=== PATIENT | male | born 1935 | race Caucasian/White ===

== ENCOUNTER 2020-11-13 20:02 | Inpatient (IN) ==
[2020-11-13] MEDS ORDERED: 0.9 % SODIUM CHLORIDE 500 ML IV ONE (20:29)
[2020-11-13] MEDS ORDERED: cefTRIAXone 1 GM VIAL IV ONE (20:29)
[2020-11-13 22:07] LABS: Appearance,Urine HAZY (Clear); Bilirubin,Urine Negative (Negative); Color,Urine YELLOW; Culture Indicated,Urine yes; Glucose,Urine (UA) Negative (Negative); Ketones,Urine Negative (Negative); Leukocyte Esterase,Urine 25 /ug (Negative); Nitrate,Urine POS (Negative); Protein,Urine Negative (Negative); Specific Gravity,Urine 1.012 (1.000-1.035); Urine Blood >=1.0 mg/dL (Negative); Urine RBC > 182 /hpf (0-1); Urine Squamous Epithelial Cell 0 /hpf (0-4); Urine WBC 15 /hpf (0-4); Urobilinogen,Urine Negative
[2020-11-13] MEDS ORDERED: ACETAMINOPHEN 325 MG TABLET PO ONE (22:10)
[2020-11-13 22:24] LABS: ALT/SGPT 13 U/L (<40); AST/SGOT 19 U/L (<40); Albumin 3.5 gm/dL (3.2-5.2); Albumin/Globulin Ratio 1.3 (1.0-2.3); Alkaline Phosphatase 61 U/L (39-117); Bilirubin,Total 0.6 mg/dL (0.1-1.0); Blood Urea Nitrogen 14 mg/dL (8-23); Calcium 8.7 mg/dL (8.6-10.4); Carbon Dioxide 25 mmol/L (22-30); Chloride 103 mmol/L (96-108); Globulin 2.8 gm/dL (2.2-3.7); Glomerular Filtration Rate 61; Glucose 91 mg/dL (70-105)
[2020-11-13 23:52] LABS: Basophils # (Auto) 0.03 K/mcL (0.00-0.30); Basophils % (Auto) 0.2 % (0.0-2.0); Eosinophils # (Auto) 0.02 K/mcL (0.00-0.70); Eosinophils % (Auto) 0.2 % (0.0-7.0); Hematocrit 39.3 % (40.1-51.0); Hemoglobin 12.5 g/dL (13.7-17.5); Lymphocytes # (Auto) 0.41 K/mcL (1.50-4.80); Lymphocytes % (Auto) 3.1 % (15.5-49.0); Mean Cell Volume 90.8 fL (80.0-100.0); Mean Corpuscular HGB Conc 31.8 g/dL (31.0-36.0); Monocytes # (Auto) 0.28 K/mcL (0.10-0.90); Monocytes % (Auto) 2.1 % (1.0-12.0); Neutrophils % (Auto) 94.4 % (38.0-78.0); Platelet Count 168 K/mcL (140-440); RBC 4.33 M/mcL (4.63-6.08); Red Cell Distribution Width 12.8 % (11.5-14.5); WBC 13.3 K/mcL (4.5-11.0)
[2020-11-14] MEDS ORDERED: SODIUM CHLORIDE IV SCH (00:15)
[2020-11-14] MEDS ORDERED: COLD IV SCH (00:15)
--- NOTE | 2020-11-14 01:37 | Emergency Department Note ---
HPI General Chief complaint: Urogenital-Male Stated complaint: urogential Time Seen by Provider: 11/13/20 21:53 Source: patient and EMS Mode of arrival: ambulatory Limitations: no limitations History of Present Illness HPI Narrative: 85-year-old male presents to the emergency department because of dizziness and shaking. [place] a sudden onset of dizziness and shaking. He had no diaphoresis with it but he felt warm. EMS may have been notified but the patient elected to drive himself to our hospital. 3 days prior to this the patient states he developed urinary tract infection symptoms. This morning he was seen at an urgent care center where he was diagnosed with having a urinary tract infection and was given Macrobid. Patient rates his discomfort as a 5 on a 0-to-10 scale. States it is constant. Although it does wax and wane. Nothing makes it better. Associated with the urinary tract infection. Dull discomfort Patient states he has had occasional urinary tract infections before. States he has known coronary artery disease and had an OR followed by placement of a stent. States he has had problems with dizziness in the past. Related Data Home Medications Medication Instructions Recorded Confirmed Glucosamine 1,000 mg PO BID 04/20/16 11/11/20 Vitamin B-12 1 tab PO DAILY 04/20/16 11/11/20 aspirin [Keyona Chewable Aspirin] 81 mg PO DAILY 04/20/16 11/11/20 finasteride 5 mg PO DAILY 04/20/16 11/11/20 omeprazole 20 mg PO DAILY 04/20/16 11/11/20 rosuvastatin 10 mg PO DAILY 04/20/16 11/11/20 nitroglycerin 0.4 mg SL Q5M PRN 12/30/18 11/11/20 Previous Rx's Medication Instructions Recorded meclizine 12.5 mg PO BIDP PRN #5 tab 12/30/18 tamsulosin 0.4 mg capsule 0.4 mg PO QHS #30 cap 10/28/20 nitrofurantoin 100 mg PO BID 7 Days #14 cap 11/13/20 monohydrate/macrocrystals 100 mg capsule Allergies Allergy/AdvReac Type Severity Reaction Status Date / Time No Known Drug Allergies Allergy Verified 11/11/20 13:39 Review of Systems ROS ROS Narrative: Narrative: Constitutional: Reports other (Did feel warm but did take temperature.); Denies fever and sweats Eyes: Denies eye pain ENT ED: Denies ear pain and rhinorrhea Cardiovascular: Denies chest pain Respiratory: Denies shortness of breath Gastrointestinal: Denies abdominal pain Genitourinary: Reports dysuria Integumentary: Denies rash Neurological: Reports dizziness; Denies headache Psychiatric: Denies anxiety Hematological/Lymphatic: Denies easy bleeding PFSH Narrative Patient History Narrative: Narrative: Medical/Surgical/Family History All Active Problems (Updated 11/14/20 @ 07:23 by Triston Franks MD) Benign paroxysmal positional vertigo (Chronic) Dizziness (Chronic) Bradycardia, sinus (Chronic) History of coronary artery stent placement (Acute ~2016) Status post myocardial infarction (Chronic ~2016) Acute UTI (Acute) Gross hematuria (Acute) History of smoking (Acute) BPH loc w urin obs/LUTS (Acute) Incomplete bladder emptying (Acute) Nocturia (Acute) Septic shock due to urinary tract infection (Acute) Medical History Acute bacterial tonsillitis Benign paroxysmal positional vertigo Bradycardia, sinus Dizziness ST elevation myocardial infarction (STEMI) Status post myocardial infarction (~2016) Urinary tract infection in male Surgical History History of coronary artery stent placement (~2015) 1, LMA or LAD ("widowmaker") Family History Other No pertinent family history Social History Smoking Status: Current every day smoker Exam Narrative Narrative: Narrative: General is a well-developed well-nourished elderly male who appears approximately 20 years less than his stated age. General Limitations: no limitations General appearance: Present alert and in distress; Absent anxious, appears intoxicated and in no apparent distress Head Head: Present atraumatic and normocephalic Eye Eye: Present EOMI ENT ENT: Present normal oropharynx and TM's normal bilaterally Neck Neck: Present full ROM Chest Chest: Present normal inspection and symmetric chest wall rise Respiratory Respiratory: Present normal lung sounds bilaterally; Absent respiratory distress Cardiovascular Cardiovascular: Present normal rhythm and tachycardia Adbominal Abdominal: Present soft; Absent tenderness Extremities Extremities: Present normal inspection and full ROM Back Back: Present normal inspection Neurological Neurological: Present alert and oriented X3 Psychiatric Psychiatric: Present normal affect and normal mood Skin Skin: Present warm (WNL) Course Reevaluation(s) Reevaluation #1: There were no beds available for admission here at the hospital though I expect patient beds to be available in the morning. For this reason I have elected to keep the patient in the emerge department tonight on observation for anticipated admission tomorrow unless his condition dramatically improves. Patient is placed on observation here in the emergency department at 2330. Time: 23:30 Reevaluation #2: Systolic blood pressure has been 100 and more since 0246. That is with Levophed. Discussed with hospitalist. He accepts the patient for admission. Time: 04:30 Reevaluation #3: Patient has maintain a systolic blood pressure 100 or greater for the past 4 hours. I will begin weaning off the Levophed to see if the patient can maintain blood pressure without it. Time: 06:40 Vital Signs Vital signs: Vital Signs Temperature 103.1 F H 11/13/20 20:03 Pulse Rate 104 H 11/13/20 20:03 Respiratory Rate 16 11/13/20 20:03 Blood Pressure 104/71 11/13/20 20:03 Pulse Oximetry (%) 98 11/13/20 20:03 Temperature 99.3 F H 11/14/20 02:30 Pulse Rate 56 L 11/14/20 07:01 Respiratory Rate 20 11/14/20 07:01 Blood Pressure 100/68 11/14/20 07:01 Pulse Oximetry (%) 97 11/14/20 07:01 [facility] Narrative Medical decision making narrative: Narrative: Elderly male presents to the emergency department because of shaking episode and dizziness earlier in the day being diagnosed with a urinary tract infection. Differential diagnosis included acute sepsis, urinary tract infection, stroke, seizure. Early upon arrival to the patient we initiated the sepsis protocol. Patient had blood work drawn urine was sent for testing and patient received IV fluids. After the blood cultures ceftriaxone 1 g was administered IV. Earlier in the stay the patient's blood pressure was in a normal range but he was tachycardic. As time went along his heart rate slowed but his blood pressure dropped below 90 systolic. White count came back elevated at 13.3. Patient did not develop a fever here in the emergency department Reviewing the CMT for sepsis patient has an actual urinary tract infection is criteria #1 has at least 2 SIRS criteria (heart rate greater than 90, respiratory rate greater than 20, white count greater than 12,000) and 1 new organ dysfunction from criteria 3 which was systolic blood pressure less than 90. Patient's lactate was normal as were the rest of criteria #3 based on her having these criteria the patient met severe sepsis blood cultures were obtained and antibiotics were administered subsequently using ceftriaxone 1 g IV. Initial order was for sepsis fluids. Patient received 1 L of normal saline followed by 2800 mL of normal saline. Patient's blood pressure was initially greater than 90 for the first few hours of her stay in the emergency department.. The original lactate was less than 2, so a repeat lactate was not ordered. Hours later I performed a review of the patient's perfusion and the patient had good perfusion at the nailbeds and in the face. I discussed with the patient his sepsis and advised him to remain here in the hospital with IV antibiotics and further monitoring until his condition improved. Patient was agreeable. With patient's blood pressure below 90 systolic I implemented Levophed. This brought the patient's blood pressure up greater than 100 systolic. I consulted with the hospitalist who accepted the patient for admission. Patient was kept on Levophed for 4 hours and blood pressure remained above 100. I am beginning the weaning off of Levophed at this time. Patient remains in the department pending the bed in the ICU or elsewhere in the hospital. Lab Data Result diagrams: 11/13/20 22:54 11/13/20 20:51 Labs: Lab Results 11/13/20 11/13/20 11/13/20 Range/Units 20:51 20:51 20:51 WBC TNP RBC TNP Hgb TNP Hct TNP MCV TNP MCH TNP MCHC TNP RDW TNP Plt Count TNP MPV TNP Neut % (Auto) (38.0-78.0) % Lymph % (Auto) (15.5-49.0) % Lyon % (Auto) (1.0-12.0) % Eos % (Auto) (0.0-7.0) % Baso % (Auto) (0.0-2.0) % Lymph # (Auto) (1.50-4.80) K/mcL Lyon # (Auto) (0.10-0.90) K/mcL Eos # (Auto) (0.00-0.70) K/mcL Baso # (Auto) (0.00-0.30) K/mcL Seg Neutrophils % TNP Band Neutrophils % TNP Lymphocytes % TNP Monocytes % (Manual) TNP Eosinophils % (Manual) TNP Basophils % (Manual) TNP Metamyelocytes % TNP Myelocytes % TNP Promyelocytes % TNP Absolute Neutrophils (1.80-8.00) K/mcL Nucleated RBCs TNP WBC Morphology TNP Vacuolated Neuts TNP Plasmacytoid Lymphs TNP Reactive Lymphocytes TNP Blast Cells TNP Plasma Cells TNP Other Cell Type TNP Toxic Granulation TNP Dohle Bodies TNP Platelet Estimate TNP RBC Morphology TNP Polychromasia TNP Hypochromasia TNP Poikilocytosis TNP Basophilic Stippling TNP Anisocytosis TNP Microcytosis TNP Macrocytosis TNP Spherocytes TNP Pappenheimer Bodies TNP Target Cells TNP Tear Drop Cells TNP Ovalocytes TNP Stomatocytes TNP Helmet Cells TNP [place] Level Bodies TNP Janeth Cells TNP Acanthocytes (Spur) TNP RBC Fragments TNP VBG Lactic Acid 1.8 (0.5-2.0) mmol/L Sodium 136 (133-145) mmol/L Potassium 3.8 (3.3-5.1) mmol/L Chloride 103 (96-108) mmol/L Carbon Dioxide 25 (22-30) mmol/L Anion Gap 8.0 (8.0-16.0) BUN 14 (8-23) mg/dL Creatinine 1.1 (0.7-1.2) mg/dL GFR Calculation 61 Glucose 91 (70-105) mg/dL Calcium 8.7 (8.6-10.4) mg/dL Total Bilirubin 0.6 (0.1-1.0) mg/dL AST 19 (<40) U/L ALT 13 (<40) U/L Alkaline Phosphatase 61 (39-117) U/L Total Protein 6.3 (5.9-8.4) gm/dL Albumin 3.5 (3.2-5.2) gm/dL Globulin 2.8 (2.2-3.7) gm/dL Albumin/Globulin Ratio 1.3 (1.0-2.3) Urine Color Urine Appearance (Clear) Urine pH (5.0-9.0) Ur Specific [place] (1.000-1.035) Urine Protein (Negative) mg/dL Urine Glucose (UA) (Negative) mg/dL Urine Ketones (Negative) mg/dL Urine Occult Blood (Negative) mg/dL Urine Nitrate (Negative) Urine Bilirubin (Negative) mg/dL Urine Urobilinogen mg/dL Ur Leukocyte Esterase (Negative) /ug Urine RBC (0-1) /hpf Urine WBC (0-4) /hpf Ur Squamous Epith Cells (0-4) /hpf Urine Bacteria (0) /hpf Ur Culture Indicated? 11/13/20 11/13/20 Range/Units 20:59 22:54 WBC 13.3 H RBC 4.33 L Hgb 12.5 L Hct 39.3 L MCV 90.8 MCH 28.9 MCHC 31.8 RDW 12.8 Plt Count 168 MPV 9.0 Neut % (Auto) 94.4 H (38.0-78.0) % Lymph % (Auto) 3.1 L (15.5-49.0) % Lyon % (Auto) 2.1 (1.0-12.0) % Eos % (Auto) 0.2 (0.0-7.0) % Baso % (Auto) 0.2 (0.0-2.0) % Lymph # (Auto) 0.41 L (1.50-4.80) K/mcL Lyon # (Auto) 0.28 (0.10-0.90) K/mcL Eos # (Auto) 0.02 (0.00-0.70) K/mcL Baso # (Auto) 0.03 (0.00-0.30) K/mcL Seg Neutrophils % Band Neutrophils % Lymphocytes % Monocytes % (Manual) Eosinophils % (Manual) Basophils % (Manual) Metamyelocytes % Myelocytes % Promyelocytes % Absolute Neutrophils 12.58 H (1.80-8.00) K/mcL Nucleated RBCs WBC Morphology Vacuolated Neuts Plasmacytoid Lymphs Reactive Lymphocytes Blast Cells Plasma Cells Other Cell Type Toxic Granulation Dohle Bodies Platelet Estimate RBC Morphology Polychromasia Hypochromasia Poikilocytosis Basophilic Stippling Anisocytosis Microcytosis Macrocytosis Spherocytes Pappenheimer Bodies Target Cells Tear Drop Cells Ovalocytes Stomatocytes Helmet Cells [place] Level Bodies [place] Cells Acanthocytes (Spur) RBC Fragments VBG Lactic Acid (0.5-2.0) mmol/L Sodium (133-145) mmol/L Potassium (3.3-5.1) mmol/L Chloride (96-108) mmol/L Carbon Dioxide (22-30) mmol/L Anion Gap (8.0-16.0) BUN (8-23) mg/dL Creatinine (0.7-1.2) mg/dL GFR Calculation Glucose (70-105) mg/dL Calcium (8.6-10.4) mg/dL Total Bilirubin (0.1-1.0) mg/dL AST (<40) U/L ALT (<40) U/L Alkaline Phosphatase (39-117) U/L Total Protein (5.9-8.4) gm/dL Albumin (3.2-5.2) gm/dL Globulin (2.2-3.7) gm/dL Albumin/Globulin Ratio (1.0-2.3) Urine Color Yellow Urine Appearance Hazy A (Clear) Urine pH 6.0 (5.0-9.0) Ur Specific [place] 1.012 (1.000-1.035) Urine Protein Negative (Negative) mg/dL Urine Glucose (UA) Negative (Negative) mg/dL Urine Ketones Negative (Negative) mg/dL Urine Occult Blood >=1.0 A (Negative) mg/dL Urine Nitrate Pos A (Negative) Urine Bilirubin Negative (Negative) mg/dL Urine Urobilinogen Negative mg/dL Ur Leukocyte Esterase 25 A (Negative) /ug Urine RBC > 182 H (0-1) /hpf Urine WBC 15 H (0-4) /hpf Ur Squamous Epith Cells 0 (0-4) /hpf Urine Bacteria None (0) /hpf Ur Culture Indicated? yes ED POC Tests ED POC Tests: RAFIA - SARS Antigen Negative CC TIME Critical Care Time Critical Care Time: Yes Total Critical Care Time: 35 Attestation: The patient's septic shock condition with a low blood pressure known infection in 3 of the criteria 2 (tachycardia tachypnea leukocytosis) necessitated my high level of attention. I spent greater than 35 minutes caring for the patient exclusive of all procedures. Discharge Plan Patient/Caregiver Discharge Instructions Pt seen by CATERING ADMINISTRATIVE ASSISTANT/PA only: No Clinical Impression: Septic shock due to urinary tract infection Activity: as instructed Patient Disposition: Xfer As Inpt ([facility]) Condition: Critical Follow up with: Apollo Kaplan ARNP [Primary Care Provider] - Prescriptions: No Action nitrofurantoin monohyd/m-cryst 100 mg capsule 100 mg PO BID 7 Days Qty: 14 RF: 0 omeprazole 20 MG capsule,delayed release(DR/EC) 20 mg PO DAILY RF: 0 aspirin [Keyona Chewable Aspirin] 81 MG tablet,chewable 81 mg PO DAILY RF: 0 finasteride 5 MG tablet 5 mg PO DAILY RF: 0 rosuvastatin 10 MG tablet 10 mg PO DAILY RF: 0 Glucosamine 1,000 mg PO BID RF: 0 Vitamin B-12 1 tab PO DAILY RF: 0 nitroglycerin 0.4 MG tablet, sublingual 0.4 mg SL Q5M PRN (Reason: Chest Pain) RF: 0 meclizine 25 MG tablet 12.5 mg PO BIDP PRN (Reason: Vertigo) Qty: 5 RF: 0 tamsulosin 0.4 mg capsule 0.4 mg PO QHS Qty: 30 RF: 6
[2020-11-14] MEDS ORDERED: NOREPINEPHRINE BITARTRATE 16 MG in 0.9 % SODIUM CHLORIDE 234 ML IV SCH (02:15)
[2020-11-14] MEDS ORDERED: 0.9 % SODIUM CHLORIDE 250 ML IV SCH ×2 (02:15→08:30)
[2020-11-14] MEDS ORDERED: BISACODYL 10 MG SUPP.RECT PR PRN ×2 (08:29→10:08)
[2020-11-14] MEDS ORDERED: ACETAMINOPHEN 325 MG TABLET PO PRN ×2 (08:29→10:08)
[2020-11-14] MEDS ORDERED: PROMETHAZINE 25 MG/ML VIAL IV PRN ×2 (08:29→10:08)
[2020-11-14] MEDS ORDERED: ONDANSETRON 4 MG/2 ML VIAL IV PRN ×2 (08:29→10:08)
[2020-11-14] MEDS ORDERED: morphine 4 MG/ML VIAL IV PRN ×2 (08:29→10:08)
[2020-11-14] MEDS ORDERED: 0.9 % SODIUM CHLORIDE 1,000 ML IV SCH (08:30)
--- NOTE | 2020-11-14 08:45 | Internal Med History&Physical ---
HPI History of Present Illness Patient information: Note initiated : 11/14/20 at 8:35 am Service Date, if different from initiated Date: [] Patient: Wayne Cloud a 85 y/o M admitted on for urogential. Chief Complaint: [pyelonephritis with septic shock] History of present illness: Mr. Cloud is a 85 year old M history of CAD status post PCI with stents placement x1, presenting with 3-day history of shaking chills, diaphoresis, dysuria, hematuria, and 1 day history of general body weakness. He had an episode of urinary tract infections about 3 to 4 weeks ago. He started to present with shaking chills, diaphoresis, dysuria, and hematuria for the past 3 days. He was again being diagnosed with another round of urinary tract infection and was started on oral antibiotics Macrobid. Yesterday [place], he developed general body weakness to the point that he could barely drive himself home. He then presented to our ED for continued unbearable weakness. His blood pressure in the ED was as low as 76/58mmHg, at which point Levophed drip was started. He also had bradycardia with heart rate in the mid 50s beats per minute. Rest of the vital signs within normal limits. Labs significant for leukocytosis with WBC 13.3. Urinalysis suggest the presence of urinary tract infections. Lactic acid pending. Constitutional Constitutional: Present weakness; Absent chills, excessive sweating, fatigue and fever(s) EENT Eyes: Absent blurry vision, change in vision, loss of vision and other visual disturbances Ears: Absent decreased hearing and tinnitus Nose, mouth and throat: Absent abnormal hearing, dry mouth, headache(s), nasal congestion and sore throat Cardiovascular Cardiovascular: Absent chest pain, chest pain at rest, edema, irregular heart rhythm and palpatations Respiratory Respiratory: Absent cough, dyspnea and wheezing Gastrointestinal Gastrointestinal: Absent abdominal pain, constipation, diarrhea, nausea and vomiting Genitourinary Genitourinary: dysuria and hematuria Musculoskeletal Musculoskeletal: Absent back pain, deformity, limited range of motion, muscle cramps, muscle weakness and numbness Integumentary Integumentary: Absent lesions, rash and wounds Neurological Neurological: Absent focal weakness, headache(s) and numbness Psychiatric Psychiatric: Absent anxiety, depression and hallucinations PFSH PFSH All Active Problems (Updated 11/14/20 @ 08:43 by Javier Martin MD) Anemia, normocytic normochromic (Acute) Septic shock (Acute) Pyelonephritis (Acute) Benign paroxysmal positional vertigo (Chronic) Dizziness (Chronic) Bradycardia, sinus (Chronic) History of coronary artery stent placement (Acute) Status post myocardial infarction (Chronic ~2016) Acute UTI (Acute) Gross hematuria (Acute) History of smoking (Acute) BPH loc w urin obs/LUTS (Acute) Incomplete bladder emptying (Acute) Nocturia (Acute) Septic shock due to urinary tract infection (Acute) Medical History (Updated 11/14/20 @ 08:43 by Javier Martin MD) Acute bacterial tonsillitis Benign paroxysmal positional vertigo Bradycardia, sinus Dizziness ST elevation myocardial infarction (STEMI) Status post myocardial infarction (~2016) Urinary tract infection in male Surgical History (Updated 11/14/20 @ 08:43 by Javier Martin MD) History of coronary artery stent placement 1, LMA or LAD ("widowmaker") Family History Other No pertinent family history Social History marital status: unknown smoking status: Former smoker MEDS/ALLERGIES Home Medications and Allergies Home Medications Medication Instructions Recorded Confirmed Type Glucosamine 1,000 mg PO BID 04/20/16 11/11/20 History Vitamin B-12 1 tab PO DAILY 04/20/16 11/11/20 History aspirin [[place] Chewable Aspirin] 81 mg PO DAILY 04/20/16 11/11/20 History finasteride 5 mg PO DAILY 04/20/16 11/11/20 History omeprazole 20 mg PO DAILY 04/20/16 11/11/20 History rosuvastatin 10 mg PO DAILY 04/20/16 11/11/20 History meclizine 12.5 mg PO BIDP PRN #5 tab 12/30/18 11/11/20 Rx nitroglycerin 0.4 mg SL Q5M PRN 12/30/18 11/11/20 History tamsulosin 0.4 mg capsule 0.4 mg PO QHS #30 cap 10/28/20 11/11/20 Rx nitrofurantoin 100 mg PO BID 7 Days #14 cap 11/13/20 Rx monohydrate/macrocrystals 100 mg capsule Allergies Allergy/AdvReac Type Severity Reaction Status Date / Time No Known Drug Allergies Allergy Verified 11/11/20 13:39 EXAM Constitutional Vitals: Temp Pulse Resp BP Pulse Ox 37.4 C H 58 L 21 105/65 98 11/14/20 02:30 11/14/20 07:46 11/14/20 07:46 11/14/20 07:46 11/14/20 07:46 General appearance: cooperative and no acute distress Head Head exam: Present atraumatic and normocephalic Eye Eye exam: Present EOMI and PERRL ENT ENT exam: Present mucous membranes moist, normal exam and normal external ear exam Neck Neck exam: Present normal inspection; Absent lymphadenopathy, tenderness and thyromegaly Respiratory Respiratory exam: Absent accessory muscle use, respiratory distress and wheezes Cardiovascular Cardiovascular exam: Present bradycardia; Absent JVD GI/Abdominal GI/Abdominal exam: Present normal bowel sounds and soft; Absent organomegaly and tenderness Rectal Rectal exam: Present deferred Extremities Exam Extremities exam: Present full ROM, normal capillary refill and normal inspection; Absent tenderness Neurological Exam Neurological exam: Present alert, CN II-XII intact and oriented X3; Absent motor sensory deficit Psychiatric Psychiatric exam: Present normal affect and normal mood; Absent anxious and depressed Skin Skin exam: Present dry and intact DATA Data Completed and Pending Labs: Labs from last 24 hours 11/13/20 11/13/20 11/13/20 22:54 20:59 20:51 WBC 13.3 H RBC 4.33 L Hgb 12.5 L Hct 39.3 L MCV 90.8 MCH 28.9 MCHC 31.8 RDW 12.8 Plt Count 168 MPV 9.0 Neut % (Auto) 94.4 H Lymph % (Auto) 3.1 L Real % (Auto) 2.1 Eos % (Auto) 0.2 Baso % (Auto) 0.2 Lymph # (Auto) 0.41 L Real # (Auto) 0.28 Eos # (Auto) 0.02 Baso # (Auto) 0.03 Seg Neutrophils % Band Neutrophils % Lymphocytes % Monocytes % (Manual) Eosinophils % (Manual) Basophils % (Manual) Metamyelocytes % Myelocytes % Promyelocytes % Absolute Neutrophils 12.58 H Nucleated RBCs WBC Morphology Vacuolated Neuts Plasmacytoid Lymphs Reactive Lymphocytes Blast Cells Plasma Cells Other Cell Type Toxic Granulation Dohle Bodies Platelet Estimate RBC Morphology Polychromasia Hypochromasia Poikilocytosis Basophilic Stippling Anisocytosis Microcytosis Macrocytosis Spherocytes Pappenheimer Bodies Target Cells Tear Drop Cells Ovalocytes Stomatocytes Helmet Cells [place] Bodies Janeth Cells Acanthocytes (Spur) RBC Fragments VBG Lactic Acid 1.8 Sodium Potassium Chloride Carbon Dioxide Anion Gap BUN Creatinine GFR Calculation Glucose Calcium Total Bilirubin AST ALT Alkaline Phosphatase Total Protein Albumin Globulin Albumin/Globulin Ratio Urine Color Yellow Urine Appearance Hazy A Urine pH 6.0 Ur Specific [place] 1.012 Urine Protein Negative Urine Glucose (UA) Negative Urine Ketones Negative Urine Occult Blood >=1.0 A Urine Nitrate Pos A Urine Bilirubin Negative Urine Urobilinogen Negative Ur Leukocyte Esterase 25 A Urine RBC > 182 H Urine WBC 15 H Ur Squamous Epith Cells 0 Urine Bacteria None Ur Culture Indicated? yes 11/13/20 11/13/20 20:51 20:51 WBC TNP RBC TNP Hgb TNP Hct TNP MCV TNP MCH TNP MCHC TNP RDW TNP Plt Count TNP MPV TNP Neut % (Auto) Lymph % (Auto) Real % (Auto) Eos % (Auto) Baso % (Auto) Lymph # (Auto) Real # (Auto) Eos # (Auto) Baso # (Auto) Seg Neutrophils % TNP Band Neutrophils % TNP Lymphocytes % TNP Monocytes % (Manual) TNP Eosinophils % (Manual) TNP Basophils % (Manual) TNP Metamyelocytes % TNP Myelocytes % TNP Promyelocytes % TNP Absolute Neutrophils Nucleated RBCs TNP WBC Morphology TNP Vacuolated Neuts TNP Plasmacytoid Lymphs TNP Reactive Lymphocytes TNP Blast Cells TNP Plasma Cells TNP Other Cell Type TNP Toxic Granulation TNP Dohle Bodies TNP Platelet Estimate TNP RBC Morphology TNP Polychromasia TNP Hypochromasia TNP Poikilocytosis TNP Basophilic Stippling TNP Anisocytosis TNP Microcytosis TNP Macrocytosis TNP Spherocytes TNP Pappenheimer Bodies TNP Target Cells TNP Tear Drop Cells TNP Ovalocytes TNP Stomatocytes TNP Helmet Cells TNP [place] Bodies TNP Janeth Cells TNP Acanthocytes (Spur) TNP RBC Fragments TNP VBG Lactic Acid Sodium 136 Potassium 3.8 Chloride 103 Carbon Dioxide 25 Anion Gap 8.0 BUN 14 Creatinine 1.1 GFR Calculation 61 Glucose 91 Calcium 8.7 Total Bilirubin 0.6 AST 19 ALT 13 Alkaline Phosphatase 61 Total Protein 6.3 Albumin 3.5 Globulin 2.8 Albumin/Globulin Ratio 1.3 Urine Color Urine Appearance Urine pH Ur Specific [place] Urine Protein Urine Glucose (UA) Urine Ketones Urine Occult Blood Urine Nitrate Urine Bilirubin Urine Urobilinogen Ur Leukocyte Esterase Urine RBC Urine WBC Ur Squamous Epith Cells Urine Bacteria Ur Culture Indicated? A/P Assessment and plan (1) Pyelonephritis: Status: Acute (2) Septic shock: Status: Acute (3) BPH loc w urin obs/LUTS: Status: Acute (4) History of coronary artery stent placement: Status: Acute Comment: 1, LMA or LAD ("widowmaker") (5) Anemia, normocytic normochromic: Status: Acute Narrative A/P Narrative: Assessment and Plans: 1. Pyelonephritis with septic shock: Admit to inpatient ICU Blood culture Urine culture Serial lactic acid cbc w/ auto diff daily to trend WBC Tylenol PRN fever Rocephin 2gm IV daily NS@100cc/hr Levophed drip with goal MAP>=65mmHg 2. h/o CAD w/ stentX1: ASA Statin 3. BPH: Flomax Finasteride 4. Anemia, normocytic normochromic: cbc w/ auto diff in the AM to trend H/H; transfuse pRBC if hemoglobin <7.0, active bleeding, or symptomatic GI ppx: continue oral PPI from home regimen DVT ppx: Lovenox Code status: Full Prognosis: extremely guarded Disposition: inpatient ICU Critical Care Time: 45min Time Spent With Patient Time: Total time spent is greater than 50% in coordination of care (as documented) at patient's floor/unit and/or counseling patient: Total time spent with greater than 50% in coordination of care (as documented) at patient's floor/unit and/or counseling patient:: Greater than 35 minutes
[2020-11-14] MEDS ORDERED: NOREPINEPHRINE BITARTRATE 8 MG in 0.9 % SODIUM CHLORIDE 242 ML IV SCH (09:00)
[2020-11-14] MEDS ORDERED: cefTRIAXone 2 GM in DEXTROSE 5% IN WATER 50 ML IV SCH (09:00)
[2020-11-14] MEDS ORDERED: DOCUSATE SODIUM 100 MG CAPSULE PO SCH (09:00)
[2020-11-14] MEDS ORDERED: ENOXAPARIN 40 MG/0.4 ML SYRINGE SQ SCH (09:00)
[2020-11-14] MEDS: 0.9 % SODIUM CHLORIDE 250 ML IV SCH (10:15)
[2020-11-14] MEDS: 0.9 % SODIUM CHLORIDE 1,000 ML IV SCH ×2 (10:15→20:29)
[2020-11-14] MEDS: NOREPINEPHRINE BITARTRATE 8 MG in 0.9 % SODIUM CHLORIDE 242 ML IV SCH (10:22)
[2020-11-14] MEDS: cefTRIAXone 2 GM in DEXTROSE 5% IN WATER 50 ML IV SCH (10:33)
[2020-11-14 11:27] LABS: ALT/SGPT 13 U/L (<40); AST/SGOT 28 U/L (<40); Albumin 3.3 gm/dL (3.2-5.2); Albumin/Globulin Ratio 1.2 (1.0-2.3); Alkaline Phosphatase 47 U/L (39-117); Bilirubin,Total 0.8 mg/dL (0.1-1.0); Blood Urea Nitrogen 17 mg/dL (8-23); Calcium 8.6 mg/dL (8.6-10.4); Carbon Dioxide 22 mmol/L (22-30); Chloride 105 mmol/L (96-108); Globulin 2.7 gm/dL (2.2-3.7); Glomerular Filtration Rate 50; Glucose 117 mg/dL (70-105)
[2020-11-14] MEDS ORDERED: 0.9 % SODIUM CHLORIDE 10 ML SYRINGE IV SCH (14:00)
[2020-11-14] MEDS: 0.9 % SODIUM CHLORIDE 10 ML SYRINGE IV SCH ×2 (14:06→20:29)
[2020-11-14] MEDS ORDERED: NON FORMULARY MEDICATION 1 DOSE MISCELL (Sildenafil (Pulm.Hypertension) 20 mg tablet) PO PRN (15:20)
[2020-11-14] MEDS ORDERED: MECLIZINE 25 MG TABLET PO PRN (15:25)
[2020-11-14] MEDS: DOCUSATE SODIUM 100 MG CAPSULE PO SCH (20:29)
[2020-11-14] MEDS ORDERED: SIMVASTATIN 40 MG TABLET PO SCH (21:00)
[2020-11-14] MEDS ORDERED: TAMSULOSIN 0.4 MG CAPSULE PO SCH (21:00)
[2020-11-15] MEDS: 0.9 % SODIUM CHLORIDE 250 ML IV SCH ×2 (04:10→10:48)
[2020-11-15] MEDS: NOREPINEPHRINE BITARTRATE 8 MG in 0.9 % SODIUM CHLORIDE 242 ML IV SCH (04:10)
[2020-11-15] MEDS: 0.9 % SODIUM CHLORIDE 1,000 ML IV SCH ×2 (05:54→16:51)
[2020-11-15] MEDS: 0.9 % SODIUM CHLORIDE 10 ML SYRINGE IV SCH ×3 (05:55→20:43)
[2020-11-15 07:02] LABS: Basophils # (Auto) 0.04 K/mcL (0.00-0.30); Basophils % (Auto) 0.3 % (0.0-2.0); Eosinophils # (Auto) 0.18 K/mcL (0.00-0.70); Eosinophils % (Auto) 1.3 % (0.0-7.0); Hematocrit 34.8 % (40.1-51.0); Hemoglobin 10.8 g/dL (13.7-17.5); Lymphocytes # (Auto) 1.33 K/mcL (1.50-4.80); Lymphocytes % (Auto) 9.5 % (15.5-49.0); Mean Cell Volume 90.9 fL (80.0-100.0); Mean Platelet Volume 9.6 fL (7.4-10.4); Monocytes # (Auto) 0.81 K/mcL (0.10-0.90); Monocytes % (Auto) 5.8 % (1.0-12.0); Neutrophils % (Auto) 83.1 % (38.0-78.0); Platelet Count 148 K/mcL (140-440); RBC 3.83 M/mcL (4.63-6.08); Red Cell Distribution Width 13.6 % (11.5-14.5)
[2020-11-15 07:51] LABS: ALT/SGPT 14 U/L (<40); AST/SGOT 38 U/L (<40); Albumin 2.8 gm/dL (3.2-5.2); Alkaline Phosphatase 43 U/L (39-117); Bilirubin,Total 0.4 mg/dL (0.1-1.0); Blood Urea Nitrogen 15 mg/dL (8-23); Calcium 8.2 mg/dL (8.6-10.4); Carbon Dioxide 22 mmol/L (22-30); Chloride 110 mmol/L (96-108); Globulin 2.7 gm/dL (2.2-3.7); Glomerular Filtration Rate 78; Glucose 96 mg/dL (70-105)
[2020-11-15] MEDS: FINASTERIDE 5 MG TABLET PO SCH ×2 (08:34→09:01)
[2020-11-15] MEDS: DOCUSATE SODIUM 100 MG CAPSULE PO SCH ×3 (08:34→20:22)
[2020-11-15] MEDS ORDERED: ASPIRIN 81 MG TAB.CHEW PO SCH (09:00)
[2020-11-15] MEDS ORDERED: GLUCOSAMINE/CHONDROITIN SULF A 1 CAP CAPSULE PO SCH (09:00)
[2020-11-15] MEDS ORDERED: MULTIVIT,THER IRON,CA,FA & MIN 1 TABLET PO SCH (09:00)
[2020-11-15] MEDS ORDERED: ENOXAPARIN 40 MG/0.4 ML SYRINGE SQ SCH (09:00)
[2020-11-15] MEDS ORDERED: CYANOCOBALAMIN (VITAMIN B-12) 500 MCG TABLET PO SCH (09:00)
[2020-11-15] MEDS ORDERED: LISINOPRIL 2.5 MG TABLET PO SCH (09:00)
[2020-11-15] MEDS ORDERED: PHENAZOPYRIDINE 200 MG TABLET PO PRN ×3 (09:28→10:47)
--- NOTE | 2020-11-15 09:48 | Internal Med Progress Note ---
SUBJECTIVE Subjective Patient information: Note initiated : 11/15/20 at 9:39 am Service Date, if different from initiated Date: [] Patient: Wayne Cloud a 85 y/o M admitted on 11/14/20 for urogential. Chief Complaint: [Pyelonephritis with septic shock] Interval history: History of present illness: Mr. Cloud is a 85 year old M history of CAD status post PCI with stents placement x1, presenting with 3-day history of shaking chills, diaphoresis, dysuria, hematuria, and 1 day history of general body weakness. He had an episode of urinary tract infections about 3 to 4 weeks ago. He started to present with shaking chills, diaphoresis, dysuria, and hematuria for the past 3 days. He was again being diagnosed with another round of urinary tract infection and was started on oral antibiotics Macrobid. Yesterday when he was [place] a [place], he developed general body weakness to the point that he could barely drive himself home. He then presented to our ED for continued unbearable weakness. His blood pressure in the ED was as low as 76/58mmHg, at which point Levophed drip was started. He also had bradycardia with heart rate in the mid 50s beats per minute. Rest of the vital signs within normal limits. Labs significant for leukocytosis with WBC 13.3. Urinalysis suggest the presence of urinary tract infections. Lactic acid pending. 11/15: Afebrile overnight. No longer requires any pressors. Both blood and urine cultures growing coagulase negative staph. Patient denies any fever or chills. Increasing energy level. Good appetite. c/o dysuria. Constitutional Vitals: Vital Signs Temp Pulse Resp BP Pulse Ox 36.3 C 81 19 112/67 98 11/15/20 00:01 11/15/20 08:59 11/15/20 08:59 11/15/20 08:59 11/15/20 08:59 Period Temp Pulse Resp BP Sys/Chambers Pulse Ox Last 24 Hr 36.3 C-37.1 C 49-83 13-30 88-126/45-98 94-100 Intake and Output 11/14/20 11/15/20 11/15/20 21:59 05:59 13:59 Intake Total 1555 1902 Output Total 100 675 Balance 1455 1227 Weight 93.123 kg Intake & Output: Intake & Output 11/14/20 11/15/20 11/15/20 21:59 05:59 13:59 Intake Total 1555 1902 Output Total 100 675 Balance 1455 1227 Weight 93.123 kg Intake: IV 1075 942 Sodium Chloride 0.9% 1,000 ml @ 1000 942 100 mls/hr IV .Q10H [facility] Rx#: [id number] Sodium Chloride 0.9% 250 ml @ 75 20 mls/hr IV .[id number] [facility] Rx#: [id number] Oral 480 960 Output: Void Amount 100 675 Other: Meal Lunch Feeding Ability Independent Urine Appearance Clear Clear Urine Color Light [place] Light [place] Urine Odor Strong Normal Stool Size Moderate Stool Color Brown Stool Consistency Formed # Bowel Movements 1 General appearance: cooperative and no acute distress Head Head exam: Present atraumatic and normocephalic Eye Eye exam: Present EOMI and PERRL ENT ENT exam: Present mucous membranes moist, normal exam and normal external ear exam Neck Neck exam: Present normal inspection; Absent lymphadenopathy, tenderness and thyromegaly Respiratory Respiratory exam: Absent accessory muscle use, respiratory distress and wheezes Cardiovascular Cardiovascular exam: Present normal rate and rhythm; Absent JVD GI/Abdominal GI/Abdominal exam: Present normal bowel sounds and soft; Absent organomegaly and tenderness Rectal Rectal exam: Present deferred Extremities Exam Extremities exam: Present full ROM, normal capillary refill and normal inspection; Absent tenderness Neurological Exam Neurological exam: Present alert, CN II-XII intact and oriented X3; Absent motor sensory deficit Psychiatric Psychiatric exam: Present normal affect and normal mood; Absent anxious and depressed Skin Skin exam: Present dry and intact OBJ DATA Labs CBC & Chem 7: 11/15/20 05:56 11/15/20 05:55 Labs: Abnormal Lab Results 11/15/20 11/15/20 11/14/20 05:56 05:55 09:14 WBC 14.0 H RBC 3.83 L Hgb 10.8 L Hct 34.8 L Neut % (Auto) 83.1 H Lymph % (Auto) 9.5 L Lymph # (Auto) 1.33 L Absolute Neutrophils 11.59 H Chloride 110 H Creatinine 1.3 H Glucose 117 H Calcium 8.2 L Total Protein 5.5 L Albumin 2.8 L Urine Appearance Urine Occult Blood Urine Nitrate Ur Leukocyte Esterase Urine RBC Urine WBC 11/13/20 11/13/20 22:54 20:59 WBC 13.3 H RBC 4.33 L Hgb 12.5 L Hct 39.3 L Neut % (Auto) 94.4 H Lymph % (Auto) 3.1 L Lymph # (Auto) 0.41 L Absolute Neutrophils 12.58 H Chloride Creatinine Glucose Calcium Total Protein Albumin Urine Appearance Hazy A Urine Occult Blood >=1.0 A Urine Nitrate Pos A Ur Leukocyte Esterase 25 A Urine RBC > 182 H Urine WBC 15 H Meds: Medications Acetaminophen (Acetaminophen 325 Mg Tablet) 650 mg PO Q4-6HP PRN; Protocol PRN Reason: Per Pain Protocol/Fever > 101 Aspirin (Aspirin 81 Mg Tab.Chew) 81 mg PO DAILY [facility] Last Admin: 11/15/20 08:34 Dose: 81 mg Documented by: Bisacodyl (Bisacodyl 10 Mg Supp.Rect) 10 mg [place] Q2-3DAYS PRN PRN Reason: Constipation Cyanocobalamin (Cyanocobalamin (Vitamin B-12) 500 Mcg Tablet) 500 mcg PO DAILY [facility] Last Admin: 11/15/20 08:34 Dose: 500 mcg Documented by: Docusate Sodium (Docusate Sodium 100 Mg Capsule) 100 mg PO BID [facility] Last Admin: 11/15/20 09:00 Dose: Not Given Documented by: Enoxaparin Sodium (Enoxaparin 40 Mg/0.4 Ml Syringe) 40 mg SQ DAILY [facility] Last Admin: 11/15/20 08:34 Dose: 40 mg Documented by: Finasteride (Finasteride 5 Mg Tablet) 5 mg PO DAILY [facility] Last Admin: 11/15/20 09:01 Dose: Not Given Documented by: Glucosamine/Chondroitin (Glucosamine/Chondroitin Sulf A 1 Cap Capsule) 1 cap PO DAILY [facility] Last Admin: 11/15/20 08:34 Dose: 1 cap Documented by: Sodium Chloride (Sodium Chloride 0.9%) 250 mls @ 20 mls/hr IV .[id number] [facility] Last Admin: 11/15/20 04:10 Dose: Not Given Documented by: Sodium Chloride (Sodium Chloride 0.9%) 1,000 mls @ 100 mls/hr IV .Q10H [facility] Last Admin: 11/15/20 05:54 Dose: 100 mls/hr Documented by: Ceftriaxone Sodium 2 gm/ (Dextrose) 50 mls @ 100 mls/hr IV DAILY [facility]; Protocol Last Infusion: 11/14/20 11:39 Dose: Infused Documented by: Norepinephrine Bitartrate 8 mg (/ Sodium Chloride) 250 mls @ 18.75 mls/hr IV Q14H [facility]; Protocol Last Admin: 11/15/20 04:10 Dose: Not Given Documented by: Iron Carb/Multivit/Bone Gap/Folic Acid (Multivit,Ther Iron,Ca,Fa & Min 1 Tablet) 1 tab PO DAILY [facility] Last Admin: 11/15/20 08:34 Dose: 1 tab Documented by: Lisinopril (Lisinopril 2.5 Mg Tablet) 2.5 mg PO DAILY [facility] Last Admin: 11/15/20 09:01 Dose: Not Given Documented by: Meclizine HCl (Meclizine 25 Mg Tablet) 12.5 mg PO BIDP PRN PRN Reason: Vertigo Morphine Sulfate (Morphine 4 Mg/Ml Vial) 4 mg IV Q2HP PRN; Protocol PRN Reason: Per Pain Protocol Ondansetron HCl (Ondansetron 4 Mg/2 Ml Vial) 4 mg IV Q4-6HP PRN; Protocol PRN Reason: Nausea And Vomiting Phenazopyridine HCl (Phenazopyridine 200 Mg Tablet) 200 mg PO BIDP PRN PRN Reason: PAINFUL URINATION Promethazine HCl (Promethazine 25 Mg/Ml Vial) 25 mg IV Q4-6HP PRN; Protocol PRN Reason: Nausea And Vomiting Simvastatin (Simvastatin 40 Mg Tablet) 40 mg PO HS [facility] Last Admin: 11/14/20 20:28 Dose: 40 mg Documented by: Sodium Chloride (0.9 % Sodium Chloride 10 Ml Syringe) 10 ml IV Q8 [facility] Last Admin: 11/15/20 05:55 Dose: 10 ml Documented by: Tamsulosin HCl (Tamsulosin 0.4 Mg Capsule) 0.4 mg PO QHS [facility] Last Admin: 11/14/20 20:28 Dose: 0.4 mg Documented by: A/P Assessment and plan (1) Gram-positive cocci bacteremia: Status: Acute (2) Anemia, normocytic normochromic: Status: Acute (3) Septic shock: Status: Acute (4) Pyelonephritis: Status: Acute (5) History of coronary artery stent placement: Status: Acute Comment: 1, LMA or LAD ("widowmaker") (6) BPH loc w urin obs/LUTS: Status: Acute Narrative A/P Narrative: Assessment and Plans: 1. Pyelonephritis with septic shock: Transfer to inpatient med surg since patient no longer requires any pressors Blood culture growing Coagulase negative staph Urine culture growing Coagulase negative staph Serial lactic acid cbc w/ auto diff daily to trend WBC Tylenol PRN fever Rocephin 2gm IV daily NS@100cc/hr Pyrdium PO BID PRN dysuria 2. h/o CAD w/ stentX1: ASA Statin 3. BPH: Flomax Finasteride 4. Anemia, normocytic normochromic: cbc w/ auto diff in the AM to trend H/H; transfuse pRBC if hemoglobin <7.0, active bleeding, or symptomatic 5. Coagulase negative staph bacteremia: 2D echocardiogram to rule out endocarditis Repeat blood culture on 11/16 Rocephin 2gm IV daily Tylenol PRN fever cbc w/ auto diff daily to trend WBC GI ppx: continue oral PPI from home regimen DVT ppx: Lovenox Code status: Full Prognosis: guarded Critical Care Time: 45min Time Spent With Patient Time: Total time spent is greater than 50% in coordination of care (as docum ented) at patient's floor/unit and/or counseling patient: QUALITY VTE Deep Vein Thrombosis/Pulmonary Embolism Present on Admission: No
[2020-11-15] MEDS: cefTRIAXone 2 GM in DEXTROSE 5% IN WATER 50 ML IV SCH (10:05)
[2020-11-15] MEDS ORDERED: 0.9 % SODIUM CHLORIDE 250 ML IV SCH (10:06)
[2020-11-15] MEDS ORDERED: MECLIZINE 25 MG TABLET PO PRN ×2 (10:06→10:47)
[2020-11-15] MEDS ORDERED: 0.9 % SODIUM CHLORIDE 1,000 ML IV SCH (10:06)
[2020-11-15] MEDS ORDERED: morphine 4 MG/ML VIAL IV PRN ×2 (10:06→10:47)
[2020-11-15] MEDS ORDERED: ACETAMINOPHEN 325 MG TABLET PO PRN (10:06)
[2020-11-15] MEDS ORDERED: ONDANSETRON 4 MG/2 ML VIAL IV PRN ×2 (10:06→10:47)
[2020-11-15] MEDS ORDERED: PROMETHAZINE 25 MG/ML VIAL IV PRN ×2 (10:06→10:47)
[2020-11-15] MEDS ORDERED: BISACODYL 10 MG SUPP.RECT PR PRN ×2 (10:06→10:47)
[2020-11-15] MEDS ORDERED: 0.9 % SODIUM CHLORIDE 10 ML SYRINGE IV SCH (14:00)
[2020-11-15] MEDS ORDERED: NOREPINEPHRINE BITARTRATE 8 MG in 0.9 % SODIUM CHLORIDE 242 ML IV PRN (15:00)
[2020-11-15] MEDS: TAMSULOSIN 0.4 MG CAPSULE PO SCH (20:22)
[2020-11-15] MEDS: SIMVASTATIN 40 MG TABLET PO SCH (20:22)
[2020-11-15] MEDS ORDERED: SIMVASTATIN 40 MG TABLET PO SCH (21:00)
[2020-11-15] MEDS ORDERED: DOCUSATE SODIUM 100 MG CAPSULE PO SCH (21:00)
[2020-11-15] MEDS ORDERED: TAMSULOSIN 0.4 MG CAPSULE PO SCH (21:00)
[2020-11-16] MEDS: 0.9 % SODIUM CHLORIDE 1,000 ML IV SCH ×2 (02:46→08:39)
[2020-11-16] MEDS: 0.9 % SODIUM CHLORIDE 250 ML IV SCH ×2 (03:03→11:41)
[2020-11-16] MEDS: 0.9 % SODIUM CHLORIDE 10 ML SYRINGE IV SCH ×3 (05:55→20:27)
[2020-11-16 07:20] LABS: Basophils # (Auto) 0.03 K/mcL (0.00-0.30); Basophils % (Auto) 0.4 % (0.0-2.0); Eosinophils # (Auto) 0.26 K/mcL (0.00-0.70); Eosinophils % (Auto) 3.1 % (0.0-7.0); Hematocrit 35.6 % (40.1-51.0); Hemoglobin 10.9 g/dL (13.7-17.5); Lymphocytes # (Auto) 1.39 K/mcL (1.50-4.80); Lymphocytes % (Auto) 16.8 % (15.5-49.0); Mean Corpuscular HGB Conc 30.6 g/dL (31.0-36.0); Mean Platelet Volume 9.8 fL (7.4-10.4); Monocytes # (Auto) 0.67 K/mcL (0.10-0.90); Monocytes % (Auto) 8.1 % (1.0-12.0); Neutrophils % (Auto) 71.6 % (38.0-78.0); Platelet Count 145 K/mcL (140-440); RBC 3.87 M/mcL (4.63-6.08); Red Cell Distribution Width 13.5 % (11.5-14.5); WBC 8.3 K/mcL (4.5-11.0)
[2020-11-16] MEDS ORDERED: cefTRIAXone 2 GM VIAL ONE (08:31)
[2020-11-16] MEDS: ENOXAPARIN 40 MG/0.4 ML SYRINGE SQ SCH (08:33)
[2020-11-16] MEDS: CYANOCOBALAMIN (VITAMIN B-12) 500 MCG TABLET PO SCH (08:34)
[2020-11-16] MEDS: DOCUSATE SODIUM 100 MG CAPSULE PO SCH ×2 (08:36→20:27)
[2020-11-16] MEDS: cefTRIAXone 2 GM in DEXTROSE 5% IN WATER 50 ML IV SCH (08:37)
[2020-11-16] MEDS: ASPIRIN 81 MG TAB.CHEW PO SCH (08:37)
[2020-11-16] MEDS: MULTIVIT,THER IRON,CA,FA & MIN 1 TABLET PO SCH (08:37)
[2020-11-16] MEDS: GLUCOSAMINE/CHONDROITIN SULF A 1 CAP CAPSULE PO SCH (08:37)
[2020-11-16] MEDS: LISINOPRIL 2.5 MG TABLET PO SCH (08:37)
[2020-11-16 08:40] LABS: ALT/SGPT 17 U/L (<40); AST/SGOT 37 U/L (<40); Albumin 2.9 gm/dL (3.2-5.2); Albumin/Globulin Ratio 1.2 (1.0-2.3); Alkaline Phosphatase 61 U/L (39-117); Bilirubin,Total 0.3 mg/dL (0.1-1.0); Blood Urea Nitrogen 9 mg/dL (8-23); Carbon Dioxide 23 mmol/L (22-30); Chloride 109 mmol/L (96-108); Globulin 2.5 gm/dL (2.2-3.7); Glomerular Filtration Rate 78; Glucose 93 mg/dL (70-105)
[2020-11-16] MEDS ORDERED: cefTRIAXone 2 GM in DEXTROSE 5% IN WATER 50 ML IV SCH (09:00)
[2020-11-16] MEDS ORDERED: MULTIVIT,THER IRON,CA,FA & MIN 1 TABLET PO SCH (09:00)
[2020-11-16] MEDS ORDERED: FINASTERIDE 5 MG TABLET PO SCH ×2 (09:00)
[2020-11-16] MEDS ORDERED: ASPIRIN 81 MG TAB.CHEW PO SCH (09:00)
[2020-11-16] MEDS ORDERED: CYANOCOBALAMIN (VITAMIN B-12) 500 MCG TABLET PO SCH (09:00)
[2020-11-16] MEDS ORDERED: GLUCOSAMINE/CHONDROITIN SULF A 1 CAP CAPSULE PO SCH (09:00)
[2020-11-16] MEDS ORDERED: LISINOPRIL 2.5 MG TABLET PO SCH (09:00)
[2020-11-16] MEDS ORDERED: ENOXAPARIN 40 MG/0.4 ML SYRINGE SQ SCH (09:00)
--- NOTE | 2020-11-16 12:03 | Internal Med Progress Note ---
SUBJECTIVE Subjective Patient information: Note initiated : 11/16/20 at 12:01 pm Service Date, if different from initiated Date: [] Patient: Wayne Cloud a 85 y/o M admitted on 11/14/20 for urogential. Chief Complaint: [pyelonephritis, bacteremia, septic shock] Interval history: History of present illness: Mr. Cloud is a 85 year old M history of CAD status post PCI with stents placement x1, presenting with 3-day history of shaking chills, diaphoresis, dysuria, hematuria, and 1 day history of general body weakness. He had an episode of urinary tract infections about 3 to 4 weeks ago. He started to present with shaking chills, diaphoresis, dysuria, and hematuria for the past 3 days. He was again being diagnosed with another round of urinary tract infection and was started on oral antibiotics Macrobid. Yesterday [place], he developed general body weakness to the point that he could barely drive himself home. He then presented to our ED for continued unbearable weakness. His blood pressure in the ED was as low as 76/58mmHg, at which point Levophed drip was started. He also had bradycardia with heart rate in the mid 50s beats per minute. Rest of the vital signs within normal limits. Labs significant for leukocytosis with WBC 13.3. Urinalysis suggest the presence of urinary tract infections. Lactic acid pending. 11/15: Afebrile overnight. No longer requires any pressors. Both blood and urine cultures growing coagulase negative staph. Patient denies any fever or chills. Increasing energy level. Good appetite. c/o dysuria. 11/16: Afebrile overnight. Both blood and urine cultures growing coagulase negative staph. Patient denies any fever or chills. Increasing energy level. Good appetite. Denies dysuria. Constitutional Vitals: Vital Signs Temp Pulse Resp BP Pulse Ox 36.8 C 60 16 143/88 97 11/16/20 08:00 11/16/20 08:00 11/16/20 08:00 11/16/20 08:00 11/16/20 08:00 Period Temp Pulse Resp BP Sys/Chambers Pulse Ox Last 24 Hr 36.1 C-36.8 C 59-64 16-18 116-144/76-91 96-97 Intake and Output 11/15/20 11/16/20 11/16/20 21:59 05:59 13:59 Intake Total 1000 1991 1050 Output Total 750 2300 500 Balance 250 -308 550 Weight 95.345 kg Intake & Output: Intake & Output 11/15/20 11/16/20 11/16/20 21:59 05:59 13:59 Intake Total 1000 1991 1050 Output Total 750 2300 500 Balance 250 -308 550 Weight 95.345 kg Intake: IV 2011 793 7580 Sodium Chloride 0.9% 1,000 ml @ 7041 786 6206 100 mls/hr IV .Q10H [facility] Rx#: [id number] Levophed 8 mg In Sodium 0 Chloride 0.9% 242 ml @ 10 MCG/ MIN 18.75 mls/hr IV Q14H [facility] Rx #:[id number] Rocephin 2 gm In Dextrose 5% in 50 Water 50 ml @ 100 mls/hr IV DAILY [facility] Rx#:[id number] Oral 0 1000 Output: Void Amount 750 2300 500 Other: Meal Dinner Percent of Meal Consumed 50% Urine Appearance Clear Clear Clear Urine Color Pale Pale Bright Yellow Urine Odor Normal General appearance: cooperative and no acute distress Head Head exam: Present atraumatic and normocephalic Eye Eye exam: Present EOMI and PERRL ENT ENT exam: Present mucous membranes moist, normal exam and normal external ear exam Neck Neck exam: Present normal inspection; Absent lymphadenopathy, tenderness and thyromegaly Respiratory Respiratory exam: Absent accessory muscle use, respiratory distress and wheezes Cardiovascular Cardiovascular exam: Present normal rate and rhythm; Absent JVD GI/Abdominal GI/Abdominal exam: Present normal bowel sounds and soft; Absent organomegaly and tenderness Rectal Rectal exam: Present deferred Extremities Exam Extremities exam: Present full ROM, normal capillary refill and normal inspection; Absent tenderness Neurological Exam Neurological exam: Present alert, CN II-XII intact and oriented X3; Absent motor sensory deficit Psychiatric Psychiatric exam: Present normal affect and normal mood; Absent anxious and depressed Skin Skin exam: Present dry and intact OBJ DATA Labs CBC & Chem 7: 11/16/20 05:08 11/16/20 05:08 Labs: Abnormal Lab Results 11/16/20 11/16/20 11/15/20 05:08 05:08 05:56 WBC 14.0 H RBC 3.87 L 3.83 L Hgb 10.9 L 10.8 L Hct 35.6 L 34.8 L MCHC 30.6 L Neut % (Auto) 83.1 H Lymph % (Auto) 9.5 L Lymph # (Auto) 1.39 L 1.33 L Absolute Neutrophils 11.59 H Chloride 109 H Creatinine Glucose Calcium 8.0 L Total Protein 5.4 L Albumin 2.9 L Urine Appearance Urine Occult Blood Urine Nitrate Ur Leukocyte Esterase Urine RBC Urine WBC 11/15/20 11/14/20 11/13/20 05:55 09:14 22:54 WBC 13.3 H RBC 4.33 L Hgb 12.5 L Hct 39.3 L MCHC Neut % (Auto) 94.4 H Lymph % (Auto) 3.1 L Lymph # (Auto) 0.41 L Absolute Neutrophils 12.58 H Chloride 110 H Creatinine 1.3 H Glucose 117 H Calcium 8.2 L Total Protein 5.5 L Albumin 2.8 L Urine Appearance Urine Occult Blood Urine Nitrate Ur Leukocyte Esterase Urine RBC Urine WBC 11/13/20 20:59 WBC RBC Hgb Hct MCHC Neut % (Auto) Lymph % (Auto) Lymph # (Auto) Absolute Neutrophils Chloride Creatinine Glucose Calcium Total Protein Albumin Urine Appearance Hazy A Urine Occult Blood >=1.0 A Urine Nitrate Pos A Ur Leukocyte Esterase 25 A Urine RBC > 182 H Urine WBC 15 H Meds: Medications Acetaminophen (Acetaminophen 325 Mg Tablet) 650 mg PO Q4-6HP PRN; Protocol PRN Reason: Per Pain Protocol/Fever > 101 Aspirin (Aspirin 81 Mg Tab.Chew) 81 mg PO DAILY [facility] Last Admin: 11/16/20 08:37 Dose: 81 mg Documented by: Bisacodyl (Bisacodyl 10 Mg Supp.Rect) 10 mg ID Q2-3DAYS PRN PRN Reason: Constipation Cyanocobalamin (Cyanocobalamin (Vitamin B-12) 500 Mcg Tablet) 500 mcg PO DAILY [facility] Last Admin: 11/16/20 08:34 Dose: 500 mcg Documented by: Docusate Sodium (Docusate Sodium 100 Mg Capsule) 100 mg PO BID [facility] Last Admin: 11/16/20 08:36 Dose: Not Given Documented by: Enoxaparin Sodium (Enoxaparin 40 Mg/0.4 Ml Syringe) 40 mg SQ DAILY [facility] Last Admin: 11/16/20 08:33 Dose: 40 mg Documented by: Glucosamine/Chondroitin (Glucosamine/Chondroitin Sulf A 1 Cap Capsule) 1 cap PO DAILY [facility] Last Admin: 11/16/20 08:37 Dose: 1 cap Documented by: Sodium Chloride (Sodium Chloride 0.9%) 250 mls @ 20 mls/hr IV .[id number] [facility] Last Admin: 11/16/20 11:41 Dose: Not Given Documented by: Ceftriaxone Sodium 2 gm/ (Dextrose) 50 mls @ 100 mls/hr IV DAILY [facility]; Protocol Last Infusion: 11/16/20 11:16 Dose: Infused Documented by: Iron Carb/Multivit/[place] Rim/Folic Acid (Multivit,Ther Iron,Ca,Fa & Min 1 Tablet) 1 tab PO DAILY [facility] Last Admin: 11/16/20 08:37 Dose: 1 tab Documented by: Lisinopril (Lisinopril 2.5 Mg Tablet) 2.5 mg PO DAILY [facility] Last Admin: 11/16/20 08:37 Dose: 2.5 mg Documented by: Meclizine HCl (Meclizine 25 Mg Tablet) 12.5 mg PO BIDP PRN PRN Reason: Vertigo Morphine Sulfate (Morphine 4 Mg/Ml Vial) 4 mg IV Q2HP PRN; Protocol PRN Reason: Per Pain Protocol Ondansetron HCl (Ondansetron 4 Mg/2 Ml Vial) 4 mg IV Q4-6HP PRN; Protocol PRN Reason: Nausea And Vomiting Phenazopyridine HCl (Phenazopyridine 200 Mg Tablet) 200 mg PO BIDP PRN PRN Reason: PAINFUL URINATION Promethazine HCl (Promethazine 25 Mg/Ml Vial) 25 mg IV Q4-6HP PRN; Protocol PRN Reason: Nausea And Vomiting Simvastatin (Simvastatin 40 Mg Tablet) 40 mg PO HS [facility] Last Admin: 11/15/20 20:22 Dose: 40 mg Documented by: Sodium Chloride (0.9 % Sodium Chloride 10 Ml Syringe) 10 ml IV Q8 [facility] Last Admin: 11/16/20 05:55 Dose: Not Given Documented by: Tamsulosin HCl (Tamsulosin 0.4 Mg Capsule) 0.4 mg PO QHS [facility] Last Admin: 11/15/20 20:22 Dose: 0.4 mg Documented by: A/P Assessment and plan (1) Gram-positive cocci bacteremia: Status: Acute (2) Anemia, normocytic normochromic: Status: Acute (3) Septic shock: Status: Acute (4) Pyelonephritis: Status: Acute (5) History of coronary artery stent placement: Status: Acute Comment: 1, LMA or LAD ("widowmaker") (6) BPH loc w urin obs/LUTS: Status: Acute Narrative A/P Narrative: Assessment and Plans: 1. Pyelonephritis with septic shock: Stays in inpatient med surg Blood culture growing Coagulase negative staph Urine culture growing Coagulase negative staph Serial lactic acid cbc w/ auto diff daily to trend WBC Tylenol PRN fever Rocephin 2gm IV daily NS@100cc/hr Pyrdium PO BID PRN dysuria 2. h/o CAD w/ stentX1: ASA Statin 3. BPH: Flomax d/c Finasteride 4. Anemia, normocytic normochromic: cbc w/ auto diff in the AM to trend H/H; transfuse pRBC if hemoglobin <7.0, active bleeding, or symptomatic 5. Coagulase negative staph bacteremia: 2D echocardiogram: no evidence of endocarditis Repeat blood culture on 11/16, no growth to date Rocephin 2gm IV daily Tylenol PRN fever cbc w/ auto diff daily to trend WBC GI ppx: continue oral PPI from home regimen DVT ppx: Lovenox Code status: Full Prognosis: stable Disposition: inpatient med surg Time Spent With Patient Time: Total time spent is greater than 50% in coordination of care (as documented) at patient's floor/unit and/or counseling patient: QUALITY VTE Deep Vein Thrombosis/Pulmonary Embolism Present on Admission: No
[2020-11-16] MEDS: SIMVASTATIN 40 MG TABLET PO SCH (20:26)
[2020-11-16] MEDS: TAMSULOSIN 0.4 MG CAPSULE PO SCH (20:26)
[2020-11-17] MEDS: 0.9 % SODIUM CHLORIDE 250 ML IV SCH (00:45)
[2020-11-17] MEDS: ACETAMINOPHEN 325 MG TABLET PO PRN ×2 (03:33→12:49)
[2020-11-17] MEDS: 0.9 % SODIUM CHLORIDE 10 ML SYRINGE IV SCH ×3 (06:07→20:34)
[2020-11-17 06:40] LABS: Basophils # (Auto) 0.02 K/mcL (0.00-0.30); Basophils % (Auto) 0.3 % (0.0-2.0); Eosinophils # (Auto) 0.17 K/mcL (0.00-0.70); Eosinophils % (Auto) 2.4 % (0.0-7.0); Hematocrit 34.9 % (40.1-51.0); Hemoglobin 11.4 g/dL (13.7-17.5); Lymphocytes # (Auto) 1.32 K/mcL (1.50-4.80); Lymphocytes % (Auto) 18.6 % (15.5-49.0); Mean Cell Volume 87.9 fL (80.0-100.0); Mean Corpuscular HGB Conc 32.7 g/dL (31.0-36.0); Mean Platelet Volume 9.7 fL (7.4-10.4); Monocytes # (Auto) 0.55 K/mcL (0.10-0.90); Monocytes % (Auto) 7.8 % (1.0-12.0); Neutrophils % (Auto) 70.9 % (38.0-78.0); Platelet Count 164 K/mcL (140-440); RBC 3.97 M/mcL (4.63-6.08); Red Cell Distribution Width 13.2 % (11.5-14.5); WBC 7.1 K/mcL (4.5-11.0)
[2020-11-17 07:41] LABS: ALT/SGPT 16 U/L (<40); AST/SGOT 26 U/L (<40); Albumin/Globulin Ratio 1.1 (1.0-2.3); Alkaline Phosphatase 60 U/L (39-117); Bilirubin,Total 0.5 mg/dL (0.1-1.0); Blood Urea Nitrogen 7 mg/dL (8-23); Calcium 8.4 mg/dL (8.6-10.4); Carbon Dioxide 25 mmol/L (22-30); Chloride 104 mmol/L (96-108); Globulin 2.7 gm/dL (2.2-3.7); Glomerular Filtration Rate 82; Glucose 101 mg/dL (70-105)
--- NOTE | 2020-11-17 08:55 | Internal Med Progress Note ---
SUBJECTIVE Subjective Patient information: Note initiated : 11/17/20 at 8:52 am Service Date, if different from initiated Date: [] Patient: Wayne Cloud a 85 y/o M admitted on 11/14/20 for urogential. Chief Complaint: [UTI, bacteremia, septic shock] Interval history: History of present illness: Mr. Cloud is a 85 year old M history of CAD status post PCI with stents placement x1, presenting with 3-day history of shaking chills, diaphoresis, dysuria, hematuria, and 1 day history of general body weakness. He had an episode of urinary tract infections about 3 to 4 weeks ago. He started to present with shaking chills, diaphoresis, dysuria, and hematuria for the past 3 days. He was again being diagnosed with another round of urinary tract infection and was started on oral antibiotics Macrobid. Yesterday when [place], he developed general body weakness to the point that he could barely drive himself home. He then presented to our ED for continued unbearable weakness. His blood pressure in the ED was as low as 76/58mmHg, at which point Levophed drip was started. He also had bradycardia with heart rate in the mid 50s beats per minute. Rest of the vital signs within normal limits. Labs significant for leukocytosis with WBC 13.3. Urinalysis suggest the presence of urinary tract infections. Lactic acid pending. 11/15: Afebrile overnight. No longer requires any pressors. Both blood and urine cultures growing coagulase negative staph. Patient denies any fever or chills. Increasing energy level. Good appetite. c/o dysuria. 11/16: Afebrile overnight. Both blood and urine cultures growing coagulase negative staph. Patient denies any fever or chills. Increasing energy level. Good appetite. Denies dysuria. 11/17: Afebrile overnight. Both initial blood and urine cultures growing coagulase negative staph; repeat blood culture no growth to date. Patient denies any fever or chills. Increasing energy level. Good appetite. Denies dysuria. Constitutional Vitals: Vital Signs Temp Pulse Resp BP Pulse Ox 37.1 C 62 16 148/91 96 11/17/20 04:00 11/17/20 04:00 11/17/20 07:46 11/17/20 04:00 11/17/20 04:00 Period Temp Pulse Resp BP Sys/Chambers Pulse Ox Last 24 Hr 36.5 C-37.2 C 58-65 12-16 129-148/80-94 96-97 Intake and Output 11/16/20 11/17/20 11/17/20 21:59 05:59 13:59 Intake Total 150 400 Output Total 1350 1800 650 Balance -1200 1400 -650 Weight 93.848 kg Intake & Output: Intake & Output 11/16/20 11/17/20 11/17/20 21:59 05:59 13:59 Intake Total 150 400 Output Total 1350 1800 650 Balance -1200 -1400 -650 Weight 93.848 kg Intake: Oral 150 400 Output: Void Amount 1350 1800 650 Other: Meal Dinner Percent of Meal Consumed 75% Feeding Ability Independent Urine Appearance Clear Clear Clear Urine Color Bright Yellow Bright Yellow Straw Urine Odor Normal General appearance: cooperative and no acute distress Head Head exam: Present atraumatic and normocephalic Eye Eye exam: Present EOMI and PERRL ENT ENT exam: Present mucous membranes moist, normal exam and normal external ear exam Neck Neck exam: Present normal inspection; Absent lymphadenopathy, tenderness and thyromegaly Respiratory Respiratory exam: Absent accessory muscle use, respiratory distress and wheezes Cardiovascular Cardiovascular exam: Present normal rate and rhythm; Absent JVD GI/Abdominal GI/Abdominal exam: Present normal bowel sounds and soft; Absent organomegaly and tenderness Rectal Rectal exam: Present deferred Extremities Exam Extremities exam: Present full ROM, normal capillary refill and normal inspection; Absent tenderness Neurological Exam Neurological exam: Present alert, CN II-XII intact and oriented X3; Absent motor sensory deficit Psychiatric Psychiatric exam: Present normal affect and normal mood; Absent anxious and depressed Skin Skin exam: Present dry and intact OBJ DATA Labs CBC & Chem 7: 11/17/20 05:05 11/17/20 05:05 Labs: Abnormal Lab Results 11/17/20 11/17/20 11/16/20 05:05 05:05 05:08 WBC RBC 3.97 L Hgb 11.4 L Hct 34.9 L MCHC Neut % (Auto) Lymph % (Auto) Lymph # (Auto) 1.32 L Absolute Neutrophils Chloride 109 H BUN 7 L Creatinine Glucose Calcium 8.4 L 8.0 L Total Protein 5.7 L 5.4 L Albumin 3.0 L 2.9 L 11/16/20 11/15/20 11/15/20 05:08 05:56 05:55 WBC 14.0 H RBC 3.87 L 3.83 L Hgb 10.9 L 10.8 L Hct 35.6 L 34.8 L MCHC 30.6 L Neut % (Auto) 83.1 H Lymph % (Auto) 9.5 L Lymph # (Auto) 1.39 L 1.33 L Absolute Neutrophils 11.59 H Chloride 110 H BUN Creatinine Glucose Calcium 8.2 L Total Protein 5.5 L Albumin 2.8 L 11/14/20 09:14 WBC RBC Hgb Hct MCHC Neut % (Auto) Lymph % (Auto) Lymph # (Auto) Absolute Neutrophils Chloride BUN Creatinine 1.3 H Glucose 117 H Calcium Total Protein Albumin Meds: Medications Acetaminophen (Acetaminophen 325 Mg Tablet) 650 mg PO Q4-6HP PRN; Protocol PRN Reason: Per Pain Protocol/Fever > 101 Last Admin: 11/17/20 03:33 Dose: 650 mg Documented by: Aspirin (Aspirin 81 Mg Tab.Chew) 81 mg PO DAILY [facility] Last Admin: 11/16/20 08:37 Dose: 81 mg Documented by: Bisacodyl (Bisacodyl 10 Mg Supp.Rect) 10 mg NE Q2-3DAYS PRN PRN Reason: Constipation Cyanocobalamin (Cyanocobalamin (Vitamin B-12) 500 Mcg Tablet) 500 mcg PO DAILY [facility] Last Admin: 11/16/20 08:34 Dose: 500 mcg Documented by: Docusate Sodium (Docusate Sodium 100 Mg Capsule) 100 mg PO BID [facility] Last Admin: 11/16/20 20:27 Dose: Not Given Documented by: Enoxaparin Sodium (Enoxaparin 40 Mg/0.4 Ml Syringe) 40 mg SQ DAILY [facility] Last Admin: 11/16/20 08:33 Dose: 40 mg Documented by: Glucosamine/Chondroitin (Glucosamine/Chondroitin Sulf A 1 Cap Capsule) 1 cap PO DAILY [facility] Last Admin: 11/16/20 08:37 Dose: 1 cap Documented by: Ceftriaxone Sodium 2 gm/ (Dextrose) 50 mls @ 100 mls/hr IV DAILY [facility]; Protocol Last Infusion: 11/16/20 11:16 Dose: Infused Documented by: Iron Carb/Multivit/[place]/Folic Acid (Multivit,Ther Iron,Ca,Fa & Min 1 Tablet) 1 tab PO DAILY [facility] Last Admin: 11/16/20 08:37 Dose: 1 tab Documented by: Lisinopril (Lisinopril 2.5 Mg Tablet) 2.5 mg PO DAILY [facility] Last Admin: 11/16/20 08:37 Dose: 2.5 mg Documented by: Meclizine HCl (Meclizine 25 Mg Tablet) 12.5 mg PO BIDP PRN PRN Reason: Vertigo Morphine Sulfate (Morphine 4 Mg/Ml Vial) 4 mg IV Q2HP PRN; Protocol PRN Reason: Per Pain Protocol Ondansetron HCl (Ondansetron 4 Mg/2 Ml Vial) 4 mg IV Q4-6HP PRN; Protocol PRN Reason: Nausea And Vomiting Phenazopyridine HCl (Phenazopyridine 200 Mg Tablet) 200 mg PO BIDP PRN PRN Reason: PAINFUL URINATION Promethazine HCl (Promethazine 25 Mg/Ml Vial) 25 mg IV Q4-6HP PRN; Protocol PRN Reason: Nausea And Vomiting Simvastatin (Simvastatin 40 Mg Tablet) 40 mg PO HS [facility] Last Admin: 11/16/20 20:26 Dose: 40 mg Documented by: Sodium Chloride (0.9 % Sodium Chloride 10 Ml Syringe) 10 ml IV Q8 [facility] Last Admin: 11/17/20 06:07 Dose: 10 ml Documented by: Tamsulosin HCl (Tamsulosin 0.4 Mg Capsule) 0.4 mg PO QHS [facility] Last Admin: 11/16/20 20:26 Dose: 0.4 mg Documented by: A/P Assessment and plan (1) Gram-positive cocci bacteremia: Status: Acute (2) Anemia, normocytic normochromic: Status: Acute (3) Septic shock: Status: Acute (4) Pyelonephritis: Status: Acute (5) History of coronary artery stent placement: Status: Acute Comment: 1, LMA or LAD ("widowmaker") (6) BPH loc w urin obs/LUTS: Status: Acute Narrative A/P Narrative: Assessment and Plans: 1. Pyelonephritis with septic shock: Stays in inpatient med surg Blood culture growing Coagulase negative staph Urine culture growing Coagulase negative staph Repeat blood culture no growth to date cbc w/ auto diff daily to trend WBC Tylenol PRN fever Rocephin 2gm IV daily Saline lock Pyrdium PO BID PRN dysuria 2. h/o CAD w/ stentX1: ASA Statin 3. BPH: Flomax 4. Anemia, normocytic normochromic: cbc w/ auto diff in the AM to trend H/H; transfuse pRBC if hemoglobin <7.0, active bleeding, or symptomatic 5. Coagulase negative staph bacteremia: 2D echocardiogram: no evidence of endocarditis Repeat blood culture on 11/16, no growth to date Rocephin 2gm IV daily Tylenol PRN fever cbc w/ auto diff daily to trend WBC GI ppx: continue oral PPI from home regimen DVT ppx: Lovenox Code status: Full Prognosis: stable Disposition: inpatient med surg Time Spent With Patient Time: Total time spent is greater than 50% in coordination of care (as documented) at patient's floor/unit and/or counseling patient: QUALITY VTE Deep Vein Thrombosis/Pulmonary Embolism Present on Admission: No
[2020-11-17] MEDS: GLUCOSAMINE/CHONDROITIN SULF A 1 CAP CAPSULE PO SCH (08:59)
[2020-11-17] MEDS: ASPIRIN 81 MG TAB.CHEW PO SCH (08:59)
[2020-11-17] MEDS: LISINOPRIL 2.5 MG TABLET PO SCH (08:59)
[2020-11-17] MEDS: MULTIVIT,THER IRON,CA,FA & MIN 1 TABLET PO SCH (08:59)
[2020-11-17] MEDS: cefTRIAXone 2 GM in DEXTROSE 5% IN WATER 50 ML IV SCH (09:00)
[2020-11-17] MEDS: CYANOCOBALAMIN (VITAMIN B-12) 500 MCG TABLET PO SCH (09:01)
[2020-11-17] MEDS: DOCUSATE SODIUM 100 MG CAPSULE PO SCH ×2 (09:02→20:34)
[2020-11-17] MEDS: ENOXAPARIN 40 MG/0.4 ML SYRINGE SQ SCH (09:02)
--- NOTE | 2020-11-17 15:03 | Internal Med Progress Note ---
SUBJECTIVE Subjective Patient information: Note initiated : 11/17/20 at 2:57 pm Service Date, if different from initiated Date: [] Patient: Wayne Cloud a 85 y/o M admitted on 11/14/20 for urogential. Chief Complaint: [] Interval history: History of present illness: Mr. Cloud is a 85 year old M history of CAD status post PCI with stents placement x1, presenting with 3-day history of shaking chills, diaphoresis, dysuria, hematuria, and 1 day history of general body weakness. He had an episode of urinary tract infections about 3 to 4 weeks ago. He started to present with shaking chills, diaphoresis, dysuria, and hematuria for the past 3 days. He was again being diagnosed with another round of urinary tract infection and was started on oral antibiotics Macrobid. Yesterday when [place], he developed general body weakness to the point that he could barely drive himself home. He then presented to our ED for continued unbearable weakness. His blood pressure in the ED was as low as 76/58mmHg, at which point Levophed drip was started. He also had bradycardia with heart rate in the mid 50s beats per minute. Rest of the vital signs within normal limits. Labs significant for leukocytosis with WBC 13.3. Urinalysis suggest the presence of urinary tract infections. Lactic acid pending. 11/15: Afebrile overnight. No longer requires any pressors. Both blood and urine cultures growing coagulase negative staph. Patient denies any fever or chills. Increasing energy level. Good appetite. c/o dysuria. 11/16: Afebrile overnight. Both blood and urine cultures growing coagulase negative staph. Patient denies any fever or chills. Increasing energy level. Good appetite. Denies dysuria. 11/17: Afebrile overnight. Both initial blood and urine cultures growing coagulase negative staph; repeat blood culture no growth to date. Patient denies any fever or chills. Increasing energy level. Good appetite. Denies dysuria. 11/18 Constitutional Vitals: Vital Signs Temp Pulse Resp BP Pulse Ox 97.9 F 64 20 134/87 96 11/17/20 13:34 11/17/20 12:00 11/17/20 12:00 11/17/20 12:00 11/17/20 12:00 Period Temp Pulse Resp BP Sys/Chambers Pulse Ox Last 24 Hr 97.6 F-98.9 F 57-65 12-20 117-148/75-94 95-97 Intake and Output 11/17/20 11/17/20 11/17/20 05:59 13:59 21:59 Intake Total 400 450 Output Total 1800 650 Balance -1400 -200 Intake & Output: Intake & Output 11/17/20 11/17/20 11/17/20 05:59 13:59 21:59 Intake Total 400 450 Output Total 1800 650 Balance -1400 -200 Intake: IV 50 Rocephin 2 gm In Dextrose 5% in 50 Water 50 ml @ 100 mls/hr IV DAILY [facility] Rx#:[id number] Oral 400 400 Output: Void Amount 1800 650 Other: Meal Dinner Breakfast Percent of Meal Consumed 75% 100% Feeding Ability Independent Urine Appearance Clear Clear Urine Color Bright Yellow Straw Urine Odor Normal Exam: General: Alert, Awake, No acute Distress Eyes/N/T: EOMI, Head/Neck: neck supple, CV: RRR, No murmurs, Pulm: Clear b/l, no wheezing/rhonchi/rales Abd: soft, nontender, +BS x4 Ext: no clubbing/cyanosis/edema Neuro: Alert, no focal deficits, moves all extremities, Skin: warm/dry OBJ DATA Labs CBC & Chem 7: 11/17/20 05:05 11/17/20 05:05 Labs: Abnormal Lab Results 11/17/20 11/17/20 11/16/20 05:05 05:05 05:08 WBC RBC 3.97 L Hgb 11.4 L Hct 34.9 L MCHC Neut % (Auto) Lymph % (Auto) Lymph # (Auto) 1.32 L Absolute Neutrophils Chloride 109 H BUN 7 L Calcium 8.4 L 8.0 L Total Protein 5.7 L 5.4 L Albumin 3.0 L 2.9 L 11/16/20 11/15/20 11/15/20 05:08 05:56 05:55 WBC 14.0 H RBC 3.87 L 3.83 L Hgb 10.9 L 10.8 L Hct 35.6 L 34.8 L MCHC 30.6 L Neut % (Auto) 83.1 H Lymph % (Auto) 9.5 L Lymph # (Auto) 1.39 L 1.33 L Absolute Neutrophils 11.59 H Chloride 110 H BUN Calcium 8.2 L Total Protein 5.5 L Albumin 2.8 L Meds: Medications Acetaminophen (Acetaminophen 325 Mg Tablet) 650 mg PO Q4-6HP PRN; Protocol PRN Reason: Per Pain Protocol/Fever > 101 Last Admin: 11/17/20 12:49 Dose: 650 mg Documented by: Aspirin (Aspirin 81 Mg Tab.Chew) 81 mg PO DAILY [facility] Last Admin: 11/17/20 08:59 Dose: 81 mg Documented by: Bisacodyl (Bisacodyl 10 Mg Supp.Rect) 10 mg OK Q2-3DAYS PRN PRN Reason: Constipation Cyanocobalamin (Cyanocobalamin (Vitamin B-12) 500 Mcg Tablet) 500 mcg PO DAILY [facility] Last Admin: 11/17/20 09:01 Dose: 500 mcg Documented by: Docusate Sodium (Docusate Sodium 100 Mg Capsule) 100 mg PO BID [facility] Last Admin: 11/17/20 09:02 Dose: Not Given Documented by: Enoxaparin Sodium (Enoxaparin 40 Mg/0.4 Ml Syringe) 40 mg SQ DAILY [facility] Last Admin: 11/17/20 09:02 Dose: 40 mg Documented by: Glucosamine/Chondroitin (Glucosamine/Chondroitin Sulf A 1 Cap Capsule) 1 cap PO DAILY [facility] Last Admin: 11/17/20 08:59 Dose: 1 cap Documented by: Ceftriaxone Sodium 2 gm/ (Dextrose) 50 mls @ 100 mls/hr IV DAILY [facility]; Protocol Last Infusion: 11/17/20 09:32 Dose: Infused Documented by: Iron Carb/Multivit/[place]/Folic Acid (Multivit,Ther Iron,Ca,Fa & Min 1 Tablet) 1 tab PO DAILY [facility] Last Admin: 11/17/20 08:59 Dose: 1 tab Documented by: Lisinopril (Lisinopril 2.5 Mg Tablet) 2.5 mg PO DAILY [facility] Last Admin: 11/17/20 08:59 Dose: 2.5 mg Documented by: Meclizine HCl (Meclizine 25 Mg Tablet) 12.5 mg PO BIDP PRN PRN Reason: Vertigo Morphine Sulfate (Morphine 4 Mg/Ml Vial) 4 mg IV Q2HP PRN; Protocol PRN Reason: Per Pain Protocol Ondansetron HCl (Ondansetron 4 Mg/2 Ml Vial) 4 mg IV Q4-6HP PRN; Protocol PRN Reason: Nausea And Vomiting Phenazopyridine HCl (Phenazopyridine 200 Mg Tablet) 200 mg PO BIDP PRN PRN Reason: PAINFUL URINATION Promethazine HCl (Promethazine 25 Mg/Ml Vial) 25 mg IV Q4-6HP PRN; Protocol PRN Reason: Nausea And Vomiting Simvastatin (Simvastatin 40 Mg Tablet) 40 mg PO HS [facility] Last Admin: 11/16/20 20:26 Dose: 40 mg Documented by: Sodium Chloride (0.9 % Sodium Chloride 10 Ml Syringe) 10 ml IV Q8 [facility] Last Admin: 11/17/20 14:46 Dose: 10 ml Documented by: Tamsulosin HCl (Tamsulosin 0.4 Mg Capsule) 0.4 mg PO QHS [facility] Last Admin: 11/16/20 20:26 Dose: 0.4 mg Documented by: A/P Narrative A/P Narrative: A: *Pyelonephritis w/Septic Shock: resolved *Bacteremia(Coagulase negative staph): -2D echocardiogram: no evidence of endocarditis -Repeat blood culture no growth to date *UTI: (Coagulase negative staph, Aerococcus urinae): *h/o CAD w/ stentX1: ASA/Statin *BPH: *Anemia, normocytic normochromic, chronic: P: -Rocephin 2gm IV daily, will need 2-wk course Abx -IVF d/c'd -f/u final BC -pt/ot -ppx: Lovenox / ppi 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
--- NOTE | 2020-11-17 15:10 | Discharge Summary ---
Discharge Provider Provider Patient information: Note initiated : 11/17/20 at 3:09 pm Service Date, if different from initiated Date: [] Patient: Wayne Cloud 85 y/o M admitted on 11/14/20 for urogential. Chief Complaint: [] Date of admission: 11/14/20 09:53 Discharge date: 11/18/20 Primary care physician: EDDIE Guadarrama Consults: 11/14/20 Consult to Physician [CONS] Stat Comment: Consulting Provider: Javier Martin Reason For Exam: Physician to Consult Discharge Meds Discharge Medications Home Medications Glucosamine 1,000 mg PO DAILY 04/20/16 [History Confirmed 11/14/20 Last Taken 04/28/17] Vitamin B-12 1 tab PO DAILY 04/20/16 [History Confirmed 11/14/20 Last Taken 04/28/17] aspirin [Keyona Chewable Aspirin] 81 mg PO DAILY 04/20/16 [History Confirmed 11/14/20 Last Taken 04/28/17] finasteride 5 mg PO HS 04/20/16 [History Confirmed 11/15/20 Last Taken 04/28/17] rosuvastatin 10 mg PO HS 04/20/16 [History Confirmed 11/14/20 Last Taken 04/28/17] meclizine 12.5 mg PO BIDP PRN #5 tab 12/30/18 [Rx Confirmed 11/14/20 Last Taken Unknown] nitroglycerin 0.4 mg SL Q5M PRN 12/30/18 [History Confirmed 11/14/20 Last Taken Unknown] tamsulosin 0.4 mg capsule 0.4 mg PO QHS #30 cap 10/28/20 [Rx Confirmed 11/14/20 Last Taken Unknown] Daily Multivitamin 1 cap PO DAILY 11/14/20 [History Confirmed 11/14/20 Last Taken Unknown] lisinopril 2.5 mg PO DAILY 11/14/20 [History Confirmed 11/14/20 Last Taken Unkno wn] sildenafil (pulm.hypertension) 20 - 40 mg PO PRN PRN 11/14/20 [History Confirmed 11/14/20 Last Taken Unknown] levofloxacin 750 mg PO Q24H #10 tab 11/17/20 [Rx Last Taken Unknown] COURSE Hospital Course Hospital course: Interval history: History of present illness: Mr. Cloud is a 85 year old M history of CAD status post PCI with stents placement x1, presenting with 3-day history of shaking chills, diaphoresis, dysuria, hematuria, and 1 day history of general body weakness. He had an episode of urinary tract infections about 3 to 4 weeks ago. He started to present with shaking chills, diaphoresis, dysuria, and hematuria for the past 3 days. He was again being diagnosed with another round of urinary tract infection and was started on oral antibiotics Macrobid. Yesterday when [place], he developed general body weakness to the point that he could barely drive himself home. He then presented to our ED for continued unbearable weakness. His blood pressure in the ED was as low as 76/58mmHg, at which point Levophed drip was started. He also had bradycardia with heart rate in the mid 50s beats per minute. Rest of the vital signs within normal limits. Labs significant for leukocytosis with WBC 13.3. Urinalysis suggest the presence of urinary tract infections. Lactic acid pending. 11/15: Afebrile overnight. No longer requires any pressors. Both blood and urine cultures growing coagulase negative staph. Patient denies any fever or chills. Increasing energy level. Good appetite. c/o dysuria. 11/16: Afebrile overnight. Both blood and urine cultures growing coagulase negative staph. Patient denies any fever or chills. Increasing energy level. Good appetite. Denies dysuria. 11/17: Afebrile overnight. Both initial blood and urine cultures growing coagulase negative staph; repeat blood culture no growth to date. Patient denies any fever or chills. Increasing energy level. Good appetite. Denies dysuria. [facility]NAME: Wayne Cloud [address] [place], [place] [address]DOB: 1935 [address]Service Date:11/13/20 Admit Date: 11/14/20 [place] [id number] # [id number] Michael Marin D.O. MR #: [id number] Internal Med Progress NoteSigned SUBJECTIVE Subjective Patient information: Note initiated : 11/18/20 at 7:55 am Service Date, if different from initiated Date: [] Patient: Wayne Cloud 85 y/o M admitted on 11/14/20 for urogential. Chief Complaint: [] Interval history: History of present illness: Mr. Cloud is a 85 year old M history of CAD status post PCI with stents placement x1, presenting with 3-day history of shaking chills, diaphoresis, dysuria, hematuria, and 1 day history of general body weakness. He had an episode of urinary tract infections about 3 to 4 weeks ago. He started to present with shaking chills, diaphoresis, dysuria, and hematuria for the past 3 days. He was again being diagnosed with another round of urinary tract infection and was started on oral antibiotics Macrobid. Yesterday when he was being [place] a [place], he developed general body weakness to the point that he could barely drive himself home. He then presented to our ED for continued unbearable weakness. His blood pressure in the ED was as low as 76/58mmHg, at which point Levophed drip was started. He also had bradycardia with heart rate in the mid 50s beats per minute. Rest of the vital signs within normal limits. Labs significant for leukocytosis with WBC 13.3. Urinalysis suggest the presence of urinary tract infections. Lactic acid pending. 11/15: Afebrile overnight. No longer requires any pressors. Both blood and urine cultures growing coagulase negative staph. Patient denies any fever or chills. Increasing energy level. Good appetite. c/o dysuria. 11/16: Afebrile overnight. Both blood and urine cultures growing coagulase negative staph. Patient denies any fever or chills. Increasing energy level. Good appetite. Denies dysuria. 11/17: Afebrile overnight. Both initial blood and urine cultures growing coagulase negative staph; repeat blood culture no growth to date. Patient denies any fever or chills. Increasing energy level. Good appetite. Denies dysuria. 11/18 Patient feeling well. No overnight event or new complaints. repeat blood culture neg x48hrs. A: *Pyelonephritis w/Septic Shock: resolved *Bacteremia(Coagulase negative staph): -2D echocardiogram: no evidence of endocarditis -Repeat blood culture no growth to date *UTI: (Coagulase negative staph, Aerococcus urinae): *h/o CAD w/ stentX1: ASA/Statin *BPH: *Anemia, normocytic normochromic, chronic: Discharge diagnosis: Pyelonephritis with septic shock bacteremia UTI Secondary discharge diagnosis: Of CAD BPH chronic anemia Time Spent with Patient Time attestation: Total time spent providing and/or coordinating discharge services: Time spent: Greater than 30 minutes EXAM Constitutional Vitals: Temp Pulse Resp BP Pulse Ox 97.9 F 64 20 134/87 96 11/17/20 13:34 11/17/20 12:00 11/17/20 12:00 11/17/20 12:00 11/17/20 12:00 Discharge Data Data Completed and Pending Labs on day of discharge: Labs from last 24 hours 11/17/20 11/17/20 11/17/20 05:05 05:05 05:05 WBC 7.1 RBC 3.97 L Hgb 11.4 L Hct 34.9 L MCV 87.9 MCH 28.7 MCHC 32.7 RDW 13.2 Plt Count 164 MPV 9.7 Neut % (Auto) 70.9 Lymph % (Auto) 18.6 [place] % (Auto) 7.8 Eos % (Auto) 2.4 Baso % (Auto) 0.3 Lymph # (Auto) 1.32 L [place] # (Auto) 0.55 Eos # (Auto) 0.17 Baso # (Auto) 0.02 Absolute Neutrophils 5.03 Sodium 138 Potassium 3.9 Chloride 104 Carbon Dioxide 25 Anion Gap 9.0 BUN 7 L Creatinine 0.8 GFR Calculation 82 Glucose 101 Calcium 8.4 L Magnesium 1.9 Total Bilirubin 0.5 AST 26 ALT 16 Alkaline Phosphatase 60 Total Protein 5.7 L Albumin 3.0 L Globulin 2.7 Albumin/Globulin Ratio 1.1 Preliminary micro results at discharge 11/16/20 05:18 Blood Culture - Preliminary Blood 11/16/20 05:15 Blood Culture - Preliminary Blood 11/13/20 20:51 Blood Culture - Preliminary Blood Discharge Plan Patient/Caregiver Discharge Instructions Activity: increase activity as tolerated and as instructed Diet: Regular Diet Activity Restrictions/Additional Instructions: start the levaquin prescription 11/19/2020. Follow-up with PCP in 3 to 7 days. Prescriptions: New levofloxacin 750 mg tablet 750 mg PO Q24H Qty: 10 RF: 0 Continued aspirin [Keyona Chewable Aspirin] 81 MG tablet,chewable 81 mg PO DAILY RF: 0 finasteride 5 MG tablet 5 mg PO HS RF: 0 rosuvastatin 10 MG tablet 10 mg PO HS RF: 0 Glucosamine 1,000 mg PO DAILY RF: 0 Vitamin B-12 1 tab PO DAILY RF: 0 nitroglycerin 0.4 MG tablet, sublingual 0.4 mg SL Q5M PRN (Reason: Chest Pain) RF: 0 meclizine 25 MG tablet 12.5 mg PO BIDP PRN (Reason: Vertigo) Qty: 5 RF: 0 lisinopril 2.5 mg tablet 2.5 mg PO DAILY RF: 0 Daily Multivitamin 200-100-500 mcg capsule 1 cap PO DAILY RF: 0 sildenafil (pulm.hypertension) 20 mg tablet 20 - 40 mg PO PRN PRN (Reason: Erectile Dysfunction) RF: 0 tamsulosin 0.4 mg capsule 0.4 mg PO QHS Qty: 30 RF: 6 Discontinued nitrofurantoin monohyd/m-cryst 100 mg capsule 100 mg PO BID 7 Days Qty: 14 RF: 0 Follow Up Plan Patient Disposition: Home, Self-Care Prognosis: Fair Overall status at discharge: patient is progressing back to baseline Discharge Orders: Discharge Order (Routine); Ordered 11/18/20 Ordered By: Michael COTTRELL VTE Deep Vein Thrombosis/Pulmonary Embolism Present on Admission: No
[2020-11-17] MEDS ORDERED: VANCOMYCIN PER PHARMACY IV SCH (15:15)
[2020-11-17] MEDS: VANCOMYCIN 1,500 MG in 0.9 % SODIUM CHLORIDE 500 ML IV SCH (15:54)
[2020-11-17] MEDS: TAMSULOSIN 0.4 MG CAPSULE PO SCH (20:33)
[2020-11-17] MEDS: SIMVASTATIN 40 MG TABLET PO SCH (20:34)
[2020-11-18] MEDS: 0.9 % SODIUM CHLORIDE 10 ML SYRINGE IV SCH (06:26)
[2020-11-18 07:25] LABS: ALT/SGPT 14 U/L (<40); AST/SGOT 19 U/L (<40); Alkaline Phosphatase 57 U/L (39-117); Bilirubin,Total 0.6 mg/dL (0.1-1.0); Blood Urea Nitrogen 7 mg/dL (8-23); Calcium 8.4 mg/dL (8.6-10.4); Carbon Dioxide 26 mmol/L (22-30); Chloride 103 mmol/L (96-108); Globulin 2.9 gm/dL (2.2-3.7); Glomerular Filtration Rate 82; Glucose 92 mg/dL (70-105)
--- NOTE | 2020-11-18 07:57 | Internal Med Progress Note ---
SUBJECTIVE Subjective Patient information: Note initiated : 11/18/20 at 7:55 am Service Date, if different from initiated Date: [] Patient: Wayen Cloud a 85 y/o M admitted on 11/14/20 for urogential. Chief Complaint: [] Interval history: History of present illness: Mr. Cloud is a 85 year old M history of CAD status post PCI with stents placement x1, presenting with 3-day history of shaking chills, diaphoresis, dysuria, hematuria, and 1 day history of general body weakness. He had an episode of urinary tract infections about 3 to 4 weeks ago. He started to present with shaking chills, diaphoresis, dysuria, and hematuria for the past 3 days. He was again being diagnosed with another round of urinary tract infection and was started on oral antibiotics Macrobid. Yesterday when he was being [place] a [place], he developed general body weakness to the point that he could barely drive himself home. He then presented to our ED for continued unbearable weakness. His blood pressure in the ED was as low as 76/58mmHg, at which point Levophed drip was started. He also had bradycardia with heart rate in the mid 50s beats per minute. Rest of the vital signs within normal limits. Labs significant for leukocytosis with WBC 13.3. Urinalysis suggest the presence of urinary tract infections. Lactic acid pending. 11/15: Afebrile overnight. No longer requires any pressors. Both blood and urine cultures growing coagulase negative staph. Patient denies any fever or chills. Increasing energy level. Good appetite. c/o dysuria. 11/16: Afebrile overnight. Both blood and urine cultures growing coagulase negative staph. Patient denies any fever or chills. Increasing energy level. Good appetite. Denies dysuria. 11/17: Afebrile overnight. Both initial blood and urine cultures growing coagulase negative staph; repeat blood culture no growth to date. Patient denies any fever or chills. Increasing energy level. Good appetite. Denies dysuria. 11/18 Patient feeling well. No overnight event or new complaints. Awaiting final repeat blood culture. Review of Systems: denies headache/fever/chills/nausea/vomiting/chest or abdominal pain/cough/dy spnea/diarrhea. Otherwise see above. Constitutional Vitals: Vital Signs Temp Pulse Resp BP Pulse Ox 98.4 F 61 18 130/82 96 11/18/20 04:01 11/18/20 04:01 11/18/20 04:01 11/18/20 04:01 11/18/20 04:01 Period Temp Pulse Resp BP Sys/Chambers Pulse Ox Last 24 Hr 97.6 F-98.8 F 57-64 16-20 117-154/75-99 95-98 Intake and Output 11/17/20 11/18/20 11/18/20 21:59 05:59 13:59 Intake Total 1300 200 Output Total 525 1050 Balance 775 -850 Weight 92.487 kg Intake & Output: Intake & Output 11/17/20 11/18/20 11/18/20 21:59 05:59 13:59 Intake Total 1300 200 Output Total 525 1050 Balance 775 -850 Weight 92.487 kg Intake: IV 500 Vancomycin 1,500 mg In Sodium 500 Chloride 0.9% 500 ml @ 333.3 mls/hr IV Q24H [facility] Rx#: [id number] Oral 800 200 Output: Void Amount 525 1050 Other: Meal Lunch Percent of Meal Consumed 100% Feeding Ability Independent Urine Appearance Clear Clear Urine Color Bright Yellow Bright Yellow Urine Odor Normal Exam: General: Alert, Awake, No acute Distress Eyes/N/T: EOMI, Head/Neck: neck supple, CV: RRR, No murmurs, Pulm: Clear b/l, no wheezing/rhonchi/rales Abd: soft, nontender, +BS x4 Ext: no clubbing/cyanosis/edema Neuro: Alert, no focal deficits, moves all extremities, Skin: warm/dry OBJ DATA Labs CBC & Chem 7: 11/17/20 05:05 11/18/20 05:11 Labs: Abnormal Lab Results 11/18/20 11/17/20 11/17/20 05:11 05:05 05:05 RBC 3.97 L Hgb 11.4 L Hct 34.9 L MCHC Lymph # (Auto) 1.32 L Chloride BUN 7 L 7 L Calcium 8.4 L 8.4 L Total Protein 5.7 L Albumin 3.0 L 3.0 L 11/16/20 11/16/20 05:08 05:08 RBC 3.87 L Hgb 10.9 L Hct 35.6 L MCHC 30.6 L Lymph # (Auto) 1.39 L Chloride 109 H BUN Calcium 8.0 L Total Protein 5.4 L Albumin 2.9 L Meds: Medications Acetaminophen (Acetaminophen 325 Mg Tablet) 650 mg PO Q4-6HP PRN; Protocol PRN Reason: Per Pain Protocol/Fever > 101 Last Admin: 11/17/20 12:49 Dose: 650 mg Documented by: Aspirin (Aspirin 81 Mg Tab.Chew) 81 mg PO DAILY [facility] Last Admin: 11/17/20 08:59 Dose: 81 mg Documented by: Bisacodyl (Bisacodyl 10 Mg Supp.Rect) 10 mg ID Q2-3DAYS PRN PRN Reason: Constipation Cyanocobalamin (Cyanocobalamin (Vitamin B-12) 500 Mcg Tablet) 500 mcg PO DAILY [facility] Last Admin: 11/17/20 09:01 Dose: 500 mcg Documented by: Docusate Sodium (Docusate Sodium 100 Mg Capsule) 100 mg PO BID [facility] Last Admin: 11/17/20 20:34 Dose: Not Given Documented by: Enoxaparin Sodium (Enoxaparin 40 Mg/0.4 Ml Syringe) 40 mg SQ DAILY [facility] Last Admin: 11/17/20 09:02 Dose: 40 mg Documented by: Glucosamine/Chondroitin (Glucosamine/Chondroitin Sulf A 1 Cap Capsule) 1 cap PO DAILY [facility] Last Admin: 11/17/20 08:59 Dose: 1 cap Documented by: Vancomycin HCl 1,500 mg/ (Sodium Chloride) 500 mls @ 333.3 mls/hr IV Q24H [facility] Last Infusion: 11/17/20 17:35 Dose: Infused Documented by: Iron Carb/Multivit/[place]/Folic Acid (Multivit,Ther Iron,Ca,Fa & Min 1 Tablet) 1 tab PO DAILY [facility] Last Admin: 11/17/20 08:59 Dose: 1 tab Documented by: Lisinopril (Lisinopril 2.5 Mg Tablet) 2.5 mg PO DAILY [facility] Last Admin: 11/17/20 08:59 Dose: 2.5 mg Documented by: Meclizine HCl (Meclizine 25 Mg Tablet) 12.5 mg PO BIDP PRN PRN Reason: Vertigo Morphine Sulfate (Morphine 4 Mg/Ml Vial) 4 mg IV Q2HP PRN; Protocol PRN Reason: Per Pain Protocol Ondansetron HCl (Ondansetron 4 Mg/2 Ml Vial) 4 mg IV Q4-6HP PRN; Protocol PRN Reason: Nausea And Vomiting Phenazopyridine HCl (Phenazopyridine 200 Mg Tablet) 200 mg PO BIDP PRN PRN Reason: PAINFUL URINATION Promethazine HCl (Promethazine 25 Mg/Ml Vial) 25 mg IV Q4-6HP PRN; Protocol PRN Reason: Nausea And Vomiting Simvastatin (Simvastatin 40 Mg Tablet) 40 mg PO HS [facility] Last Admin: 11/17/20 20:34 Dose: 40 mg Documented by: Sodium Chloride (0.9 % Sodium Chloride 10 Ml Syringe) 10 ml IV Q8 [facility] Last Admin: 11/18/20 06:26 Dose: 10 ml Documented by: Tamsulosin HCl (Tamsulosin 0.4 Mg Capsule) 0.4 mg PO QHS [facility] Last Admin: 11/17/20 20:33 Dose: 0.4 mg Documented by: Vancomycin HCl (Vancomycin Per Pharmacy) 1 order IV UD [facility]; Protocol A/P Narrative A/P Narrative: A: *Pyelonephritis w/Septic Shock: resolved *Bacteremia(Coagulase negative staph): -2D echocardiogram: no evidence of endocarditis -Repeat blood culture no growth to date *UTI: (Coagulase negative staph, Aerococcus urinae): *h/o CAD w/ stentX1: ASA/Statin *BPH: *Anemia, normocytic normochromic, chronic: P: -Transition to Levaquin, will need 2-wk course Abx -IVF d/c'd -f/u final BC -pt/ot -ppx: Lovenox / ppi Code status: Manager Analytical Spent With Patient Time: Total time spent is greater than 50% in coordination of care (as documented) at patient's floor/unit and/or counseling patient: QUALITY VTE Deep Vein Thrombosis/Pulmonary Embolism Present on Admission: No
[2020-11-18] MEDS: DOCUSATE SODIUM 100 MG CAPSULE PO SCH (08:14)
[2020-11-18] MEDS: ASPIRIN 81 MG TAB.CHEW PO SCH (08:58)
[2020-11-18] MEDS: GLUCOSAMINE/CHONDROITIN SULF A 1 CAP CAPSULE PO SCH (08:58)
[2020-11-18] MEDS: LISINOPRIL 2.5 MG TABLET PO SCH (08:58)
[2020-11-18] MEDS: ENOXAPARIN 40 MG/0.4 ML SYRINGE SQ SCH (08:58)
[2020-11-18] MEDS: MULTIVIT,THER IRON,CA,FA & MIN 1 TABLET PO SCH (08:58)
[2020-11-18] MEDS: CYANOCOBALAMIN (VITAMIN B-12) 500 MCG TABLET PO SCH (08:58)
[2020-11-18] MEDS: VANCOMYCIN 1,500 MG in 0.9 % SODIUM CHLORIDE 500 ML IV SCH (09:22)
[2020-11-18] MEDS ORDERED: LEVOFLOXACIN 750 MG TABLET PO ONE (10:26)
== END 2020-11-18 12:20 | disposition home or self-care (01) | DRG 871 ==
LOC: ED 20:02 → ICU 11-14 09:53 → MEDSUR 11-15 11:50
PROVIDERS: ADMIT Internal Medicine; ATTEND Internal Medicine